=== PATIENT | male | born 1960 | race African-American/Black ===

== ENCOUNTER 2017-10-14 10:29 | Emergency (ER) | payer SELFPAY ==
--- NOTE | 2017-10-14 11:12 | ER Document Report ---
ED Medical Screen (RME) - General Chief Complaint: Psych Problem Stated Complaint: PSYCH EVAL Time Seen by Provider: 10/14/17 11:00 Notes: 57-year-old alcoholic. Presents for possible withdrawals. Patient states that he has not been feeling well. Very shaky. Denies any hallucinations at this time. States he wants to quit drinking. Denies suicidal ideation but states that he has been under a lot of stress and has been using alcohol as a way to escape. Requesting help at this time. I have greeted and performed a rapid initial assessment of this patient. A comprehensive ED assessment and evaluation of the patient, analysis of test results and completion of the medical decision making process will be conducted by additional ED providers. TRAVEL OUTSIDE OF THE [place] IN LAST 30 DAYS: No - Related Data Allergies/Adverse Reactions: No Known Allergies Allergy (Verified 10/14/17 10:30) Past Medical History - Social History Frequency of alcohol use: Heavy Drug Abuse: None - Past Medical History Cardiac Medical History: Reports: Hx Hypertension - no meds at this time Pulmonary Medical History: Reports: Hx Asthma Renal/ Medical History: Denies: Hx Peritoneal Dialysis - Immunizations Hx Diphtheria, Pertussis, Tetanus Vaccination: No Physical Exam - Vital signs Vitals: Temp Pulse Resp BP Pulse Ox 98.6 F 78 18 146/91 H 100 10/14/17 10:36 10/14/17 10:36 10/14/17 10:36 10/14/17 10:36 10/14/17 10:36 - Notes Notes: General: Alert no acute distress HEENT: Atraumatic, normocephalic, pupils equal round react to light and accommodation, extraocular muscles are intact, nose is non tender, posterior pharynx is without erythema or exudate. Tongue is unremarkable Heart: Heart with regular rate and rhythm, no murmurs, no rubs, no clicks Lungs: Lungs clear to auscultation bilaterally, no wheezes, rhonchi, rales Abdomen: Abdomen is soft, nontender, nondistended, normal bowel sounds Neuro: cranial nerves II through XII intact, reflexes intact, sensation intact, Extremities:Moving all extremities. Equal strength bilaterally in the upper lower extremities. No significant deformity Skin: No lesions. Skin intact Psych: Normal insight. Normal judgment Course - Vital Signs Vital signs: Temp Pulse Resp BP Pulse Ox 98.6 F 78 18 146/91 H 100 10/14/17 10:36 10/14/17 10:36 10/14/17 10:36 10/14/17 10:36 10/14/17 10:36 - Laboratory Result Diagrams: 10/14/17 11:30 10/14/17 11:30 Laboratory results interpreted by me: 10/14/17 10/14/17 11:30 11:30 Hgb 12.6 L MCV 79 L MCH 26.1 L RDW 17.2 H Plt Count 143 L Sodium 136.6 L
[2017-10-14] MEDS ORDERED: LORAZEPAM 1 MG TABLET PO ONE ×2 (11:14→19:47)
[2017-10-14 11:47] LABS: ABSOLUTE BASOPHILS # (AUTO) 0.1 10^3/uL (0.0-0.2); ABSOLUTE EOSINOPHILS # (AUTO) 0.1 10^3/uL (0.0-0.6); ABSOLUTE LYMPHOCYTES (AUTO) 2.5 10^3/uL (0.5-4.7); ABSOLUTE MONOCYTES (AUTO) 0.7 10^3/uL (0.1-1.4); ABSOLUTE NEUT (AUTO) 3.5 10^3/uL (1.7-8.2); BASOPHILS % (AUTO) 0.9 % (0-2); EOSINOPHILS % (AUTO) 1.8 % (0-6); HEMATOCRIT 38.3 % (37.9-51.0); HEMOGLOBIN 12.6 g/dL (13.5-17.0); LYMPHOCYTES % (AUTO) 36.7 % (13-45); MEAN CORPUSCULAR HEMOGLOBIN 26.1 pg (27.0-33.4); MEAN CORPUSCULAR HGB CONC 32.9 g/dL (32.0-36.0); MEAN CORPUSCULAR VOLUME 79 fl (80-97); MONOCYTES % (AUTO) 9.8 % (3-13); PLATELET COUNT 143 10^3/uL (150-450); RED BLOOD COUNT 4.83 10^6/uL (4.35-5.55); RED CELL DISTRIBUTION WIDTH 17.2 % (11.5-14.0); SEGMENTED NEUTROPHILS % (AUTO) 50.8 % (42-78); TOTAL CELLS COUNTED % (AUTO) 100 %; WHITE BLOOD COUNT 6.8 10^3/uL (4.0-10.5)
[2017-10-14 12:15] LABS: ALANINE AMINOTRANSFERASE 25 U/L (21-72); ALBUMIN 4.9 g/dL (3.5-5.0); ALCOHOL 52 mg/dL (NONE DETECTED); ALKALINE PHOSPHATASE 47 U/L (38-126); ANION GAP 13 (5-19); ASPARTATE AMINO TRANSFERASE 37 U/L (17-59); BILIRUBIN,DIRECT 0.2 mg/dL (0.0-0.4); BILIRUBIN,TOTAL 0.5 mg/dL (0.2-1.3); BLOOD UREA NITROGEN 8 mg/dL (7-20); CALCIUM 9.9 mg/dL (8.4-10.2); CARBON DIOXIDE 26 mmol/L (22-30); CHLORIDE 98 mmol/L (98-107); GLUCOSE 83 mg/dL (75-110); POTASSIUM 3.9 mmol/L (3.6-5.0); SODIUM 136.6 mmol/L (137-145); TOTAL PROTEIN 7.9 g/dL (6.3-8.2)
--- NOTE | 2017-10-14 12:31 | ER Document Report ---
ED Psych Disorder / Suicide - General Chief Complaint: Psych Problem Stated Complaint: PSYCH EVAL Time Seen by Provider: 10/14/17 11:00 Notes: Patient says he is experiencing panic attacks, anxiety attacks, nightmares. He thinks is from his alcohol drinking. Says he drinks beer as well as liquor every day. Drinks from the time he gets up in the morning until he runs out. If he stops drinking, he developed shakes. No other significant past history. Patient denies nausea, vomiting, or diarrhea. Denies any chest pains. Denies abdominal pains. No history of liver disease or pancreatitis. Occasionally short of breath because he smokes 2 packs of cigarettes daily. No urinary tract symptoms. Has not been running any fevers. Patient has never had any surgeries. Not on any regular prescription medications. TRAVEL OUTSIDE OF THE [place] IN LAST 30 DAYS: No - Related Data Allergies/Adverse Reactions: No Known Allergies Allergy (Verified 10/14/17 10:30) Past Medical History - Social History Smoking Status: Current Every Day Smoker - 2 packs per day Cigarette use (# per day): Yes Frequency of alcohol use: Heavy Drug Abuse: None Family History: Reviewed & Not Pertinent Patient has suicidal ideation: Yes - unsure Patient has homicidal ideation: No - Past Medical History Cardiac Medical History: Reports: Hx Hypertension - no meds at this time Pulmonary Medical History: Reports: Hx Asthma - Immunizations Hx Diphtheria, Pertussis, Tetanus Vaccination: No Review of Systems - Review of Systems Notes: REVIEW OF SYSTEMS: CONSTITUTIONAL : Denies fever. EENT: Denies eye, ear, nose or mouth or throat pain or other symptoms. CARDIOVASCULAR: Denies chest pain. RESPIRATORY: Patient has some cough and occasional shortness of breath which he attributes to his smoking 2 packs of cigarettes daily. GASTROINTESTINAL: Denies abdominal pain or nausea, vomiting, or diarrhea. GENITOURINARY: Denies difficulty or painful urinating, urinary frequency, blood in urine. MUSCULOSKELETAL: Denies back or neck pain. Denies joint pain or swelling. SKIN: Denies rash or skin lesions. NEUROLOGICAL: Denies LOC or altered mental status. Denies headache. Denies sensory loss or motor deficits. ALL OTHER SYSTEMS REVIEWED AND NEGATIVE. Physical Exam - Vital signs Vitals: Temp Pulse Resp BP Pulse Ox 98.6 F 78 18 146/91 H 100 10/14/17 10:36 10/14/17 10:36 10/14/17 10:36 10/14/17 10:36 10/14/17 10:36 Interpretation: Normal - Notes Notes: PHYSICAL EXAMINATION: GENERAL: Well-appearing, in no acute distress. Vital signs all essentially normal. Minimal elevation of blood pressure. HEAD: Atraumatic, normocephalic. EYES: Pupils equal round and reactive to light, extraocular movements intact. ENT: oropharynx clear without exudates. Moist mucous membranes. NECK: Normal range of motion, supple. LUNGS: Breath sounds clear and equal bilaterally. An occasional scattered wheezes heard. HEART: Regular rate and rhythm without murmurs. ABDOMEN: Soft, nontender. No guarding or rebound. No masses. BACK: No tenderness throughout entire back. EXTREMITIES: Normal range of motion without pain. NEUROLOGICAL: Normal speech, normal gait. Normal sensory, motor, and reflex exams. Awake, alert, and oriented x3. Cranial nerves normal. PSYCH: Normal mood, normal affect. SKIN: Warm, dry, no rashes. Course - Re-evaluation Re-evalutation: 10/14/17 18:57 Lab work all essentially normal except for the patient's blood alcohol of 52. - Vital Signs Vital signs: Temp Pulse Resp BP Pulse Ox 99.2 F 73 18 133/78 H 100 10/14/17 18:44 10/14/17 18:44 10/14/17 14:50 10/14/17 18:44 10/14/17 18:44 - Laboratory Result Diagrams: 10/14/17 11:30 10/14/17 11:30 Laboratory results interpreted by me: 10/14/17 10/14/17 10/14/17 11:30 11:30 14:09 Hgb 12.6 L MCV 79 L MCH 26.1 L RDW 17.2 H Plt Count 143 L Sodium 136.6 L Urine Urobilinogen 4.0 H - EKG Interpretation by Pr EKG shows normal: Sinus rhythm Rate: Normal Rhythm: NSR - At 69 Voltage: Consistant with LVH Additional EKG results interpreted by mo: 10/14/17 12:[address] changes, no acute process noted. Discharge - Discharge Clinical Impression: Alcohol abuse
--- NOTE | 2017-10-14 13:10 | EKG REPORT ---
SEVERITY:- ABNORMAL ECG - SINUS TACHYCARDIA WITH PAC. BORDERLINE LEFT AXIS DEVIATION NONSPECIFIC T ABNORMALITIES, ANTERIOR LEADS : Confirmed by: Nam Petty MD 14-Oct-2017 13:09:59
[2017-10-14 14:57] LABS: APPEARANCE,URINE CLEAR; BILIRUBIN,URINE NEGATIVE (NEGATIVE); COLOR,URINE STRAW; GLUCOSE, URINE NEGATIVE (NEGATIVE); KETONES,URINE NEGATIVE (NEGATIVE); PROTEIN,URINE NEGATIVE (NEGATIVE); URINE SPECIFIC GRAVITY 1.007
[2017-10-14 14:58] LABS: LEUKOCYTE ESTERASE,URINE NEGATIVE (NEGATIVE); NITRITE,URINE NEGATIVE (NEGATIVE)
[2017-10-14 14:59] LABS: URINE AMPHETAMINES SCREEN NEGATIVE; URINE BARBITURATES SCREEN NEGATIVE; URINE BENZODIAZEPINES SCREEN NEGATIVE; URINE COCAINE SCREEN NEGATIVE; URINE MARIJUANA (THC) SCREEN NEGATIVE; URINE METHADONE SCREEN NEGATIVE; URINE PHENCYCLIDINE SCREEN NEGATIVE
[2017-10-14] MEDS ORDERED: HYDROXYZINE PAMOATE 25 MG CAPSULE PO ONE (19:47)
[2017-10-15 08:12] VITALS: BP 145/80
--- NOTE | 2017-10-19 07:23 | PSYCHOLOGICAL NOTE ---
Psych Note - Psych Note Psych Note: Reason for Consult: alcohol abuse Consult Requested: 1229 Evaluation: 1st attempt 1300 (patient is under the influence and was provided Ativan; patient is currently sleeping 2nd attempt 1600 Patient says he is experiencing panic attacks, anxiety attacks, nightmares. He thinks is from his alcohol drinking. Says he drinks beer as well as liquor every day. Drinks from the time he gets up in the morning until he runs out. If he stops drinking, he developed shakes. Patient's brother at bedside at patient's request. Patient disclosed that he is here at [facility] ED to detox. Patient disclosed he has difficulty with drinking and is interested in achieving sobriety. Patient disclosed attempting to achieve sobriety on his own however denies any inpatient substance abuse treatment or outpatient provider. He denied history of mental health denies any previous inpatient mental health treatment or seeing an outpatient mental health provider. Patient's brother disclosed concern that the patient drinks constantly; "all his money goes to liquor." He disclosed that he is willing to assist the patient; however, feels that there is not a whole lot he can do for him unless the patient truly wants help. He agrees to be part of the patient's discharge plan to assist the patient in sobriety. Clinician discussed inpatient substance abuse treatment options to include integrated family services to help coordinate. Patient is alert and orientated to person, place, time and circumstance. Mood is euthymic with congruent affect as evidenced by smiling and openly engaging with clinician. Patient denies suicidal and homicidal ideation. Delusions are absent and behaviors congruent with intact reality based presentation i.e. organized and linear thought processes. Intellectual abilities appear to be within the average range. Eye contact was well-maintained. Conversational speech was within normal rate, tone and prosody. Attention and concentration were good. Insight, judgment, impulse control are historically poor per patient due to substance abuse. No medication recommendations at this time. 303.90 (F10.20) Alcohol abuse; severe Impression\\plan: Patient is considered psychiatrically clear. Patient is interested in sobriety and requests information. Clinician provided local resource list to include integrated family services to help patient coordinate obtaining inpatient substance abuse treatment. Patient's brother agrees to be part of patient's discharge plan to assist patient in following through with substance abuse treatment if he chooses. Dr. Torres was consulted and the care and management of this patient; attending physician is in agreement with recommendations and disposition.
== END 2017-10-15 08:12 | disposition home or self-care (01) ==
LOC: ER 10:29
DX: F10.10 Alcohol abuse, uncomplicated (principal); F41.9 Anxiety disorder, unspecified; F41.0 Panic disorder [episodic paroxysmal anxiety]; F51.5 Nightmare disorder; F17.210 Nicotine dependence, cigarettes, uncomplicated; I10 Essential (primary) hypertension; J45.909 Unspecified asthma, uncomplicated; R05 Cough; R06.02 Shortness of breath
CPT/HCPCS: 36415; 80053; 80307; 81001; 85025; 93005; 93010; 99284

== ENCOUNTER 2019-06-12 16:09 | Inpatient (IN) | payer SELFPAY ==
--- NOTE | 2019-06-12 16:42 | RADIOLOGY REPORT (SQ) ---
EXAM DESCRIPTION: CHEST SINGLE VIEW COMPLETED DATE/TIME: 06/12/2019 4:31 pm REASON FOR STUDY: bed 5 db COMPARISON: None. EXAM PARAMETERS: NUMBER OF VIEWS: One view. TECHNIQUE: Single frontal radiographic view of the chest acquired. RADIATION DOSE: NA LIMITATIONS: None. FINDINGS: LUNGS AND PLEURA: Dense infiltrate in the mid right lung. Left lung clear. No pleural ef fusion. No pneumothorax. MEDIASTINUM AND HILAR STRUCTURES: No masses. Contour normal. HEART AND VASCULAR STRUCTURES: Heart normal in size. Normal vasculature. BONES: No acute findings. HARDWARE: None in the chest. OTHER: No other significant finding. IMPRESSION: DENSE INFILTRATE IN THE RIGHT LUNG CONSISTENT WITH PNEUMONIA. TECHNICAL DOCUMENTATION: JOB ID: [id number] [employer]- All Rights Reserved Reading location - IP/workstation name: [email or web address]
[2019-06-12 16:54] LABS: VENOUS BLOOD BASE EXCESS -1.4 mmol/L; VENOUS BLOOD HCO3 21.8 mmol/L (20-32); VENOUS BLOOD PCO2 32.4 mmHg (35-63); VENOUS BLOOD PH 7.45 (7.30-7.42)
[2019-06-12 16:58] LABS: HEMATOCRIT 36.9 % (37.9-51.0); HEMOGLOBIN 12.1 g/dL (13.5-17.0); MEAN CORPUSCULAR HEMOGLOBIN 26.1 pg (27.0-33.4); MEAN CORPUSCULAR HGB CONC 32.7 g/dL (32.0-36.0); MEAN CORPUSCULAR VOLUME 80 fl (80-97); RED BLOOD COUNT 4.62 10^6/uL (4.35-5.55); RED CELL DISTRIBUTION WIDTH 18.8 % (11.5-14.0)
[2019-06-12 17:11] LABS: ALBUMIN 4.1 g/dL (3.5-5.0); ALKALINE PHOSPHATASE 38 U/L (38-126); ASPARTATE AMINO TRANSFERASE 111 U/L (17-59); BILIRUBIN,DIRECT 1.4 mg/dL (0.0-0.4); BILIRUBIN,TOTAL 2.6 mg/dL (0.2-1.3); BLOOD UREA NITROGEN 27 mg/dL (7-20); CALCIUM 9.2 mg/dL (8.4-10.2); CREATINE KINASE 256 U/L (55-170); GLUCOSE 120 mg/dL (75-110); TOTAL PROTEIN 7.1 g/dL (6.3-8.2)
[2019-06-12 17:22] LABS: CREATINE KINASE MB 3.16 ng/mL (<4.55)
[2019-06-12 17:24] LABS: TROPONIN I < 0.012 ng/mL
[2019-06-12 17:29] LABS: PLATELET COUNT 67 10^3/uL (150-450)
[2019-06-12 17:32] LABS: CARBON DIOXIDE 21 mmol/L (22-30); CHLORIDE 96 mmol/L (98-107)
[2019-06-12 17:35] LABS: POTASSIUM 2.7 mmol/L (3.6-5.0)
[2019-06-12 17:37] LABS: ABSOLUTE LYMPHOCYTES# (MANUAL) 0.5 10^3/uL (0.5-4.7); ABSOLUTE MONOCYTES # (MANUAL) 0.2 10^3/uL (0.1-1.4); ANISOCYTOSIS 2+; BASOPHILS % (MANUAL) 0 % (0-2); EOSINOPHILS % (MANUAL) 0 % (0-6); LYMPHOCYTES % (MANUAL) 13 % (13-45); METAMYELOCYTES % (MANUAL) 1 % (0-1); MONOCYTES % (MANUAL) 4 % (3-13); SEGMENTED NEUTROPHILS % (MAN) 66 % (42-78); TOTAL CELLS COUNTED 100
[2019-06-12 17:38] LABS: PLATELET COMMENT DECREASED; PLATELET LARGE PRESENT; TARGET CELLS 1+; TOXIC GRANULATION 2+; TOXIC VACUOLATION PRESENT
[2019-06-12] MEDS ORDERED: RINGERS SOLUTION,LACTATED 1,000 ML IV ONE ×2 (17:38→18:09)
[2019-06-12 17:39] LABS: BAND NEUTROPHILS % (MANUAL) 16 % (3-5)
[2019-06-12] MEDS ORDERED: IPRATROPIUM/ALBUTEROL 0.5-2.5 MG/3 ML AMPUL NEB ONE (17:39)
[2019-06-12] MEDS ORDERED: METHYLPREDNISOLONE INJ 125 MG/2 ML SDV IV ONE (17:39)
[2019-06-12] MEDS ORDERED: AZITHROMYCIN 250 MG TABLET PO ONE (17:40)
[2019-06-12] MEDS ORDERED: CEFTRIAXONE 1 GM/D5W RTU 1 GM/50 ML RTUPB IV ONE (17:40)
[2019-06-12 17:41] LABS: ANION GAP 20 (5-19)
[2019-06-12] MEDS ORDERED: POTASSI CL 20 MEQ/50 ML RIDER 20 MEQ/50 ML RTUPB IV ONE ×2 (17:42→21:00)
[2019-06-12] MEDS ORDERED: POTASSIUM CHLORIDE 10 MEQ TABLET.ER PO ONE (17:42)
[2019-06-12 18:04] LABS: APPEARANCE,URINE CLOUDY; BILIRUBIN,URINE NEGATIVE (NEGATIVE); COLOR,URINE AMBER; GLUCOSE, URINE 50 mg/dL (NEGATIVE); KETONES,URINE NEGATIVE (NEGATIVE); LEUKOCYTE ESTERASE,URINE NEGATIVE (NEGATIVE); NITRITE,URINE NEGATIVE (NEGATIVE); PROTEIN,URINE >=500 mg/dL (NEGATIVE); URINE SPECIFIC GRAVITY 1.013
--- NOTE | 2019-06-12 18:16 | ER Document Report ---
ED General - General Chief Complaint: Shortness Of Breath Stated Complaint: SHORTNESS OF BREATH Time Seen by Provider: 06/12/19 17:23 Mode of Arrival: Ambulatory Information source: Patient, PENDING SALE TO [facility] Records Notes: 58-year-old male with hypertension complaint of shortness of breath, productive cough that have been ongoing for 1 week. Patient states that he does not take any blood pressure medication or any medication. Patient reports that his grandson called EMS and that he is not really sure why. Patient denies palpitations, chest pain, back pain he does admit to generalized abdominal pain with coughing only. Patient denies any leg swelling, history of PE, DVT. Patient does admit to smoking almost 1 pack/day for over 20 years. TRAVEL OUTSIDE OF THE [place] IN LAST 30 DAYS: No - HPI Onset: Last week Onset/Duration: Gradual, Intermittent Quality of pain: Achy Severity: Mild Associated symptoms: Productive cough, Headache, Shortness of breath. denies: Body/muscle aches, Chest pain, Fever, Leg swelling, Nausea, Vomiting, Weakness Exacerbated by: Walking, Coughing Relieved by: Denies Similar symptoms previously: No Recently seen / treated by doctor: No - Related Data Allergies/Adverse Reactions: No Known Allergies Allergy (Verified 10/14/17 10:30) Past Medical History - General Information source: Patient - Social History Smoking Status: Current Every Day Smoker Cigarette use (# per day): Yes - 10 Smoking Education Provided: Yes - Smoking cessation counseling was provided for 4 minutes at the bedside Frequency of alcohol use: Occasional Drug Abuse: None Lives with: Family Family History: Reviewed & Not Pertinent Patient has suicidal ideation: No Patient has homicidal ideation: No - Past Medical History Cardiac Medical History: Reports: Hx Hypertension - no meds at this time Pulmonary Medical History: Reports: Hx Asthma Renal/ Medical History: Denies: Hx Peritoneal Dialysis - Immunizations Hx Diphtheria, Pertussis, Tetanus Vaccination: No Review of Systems - Review of Systems Notes: REVIEW OF SYSTEMS: CONSTITUTIONAL : Denies fever, chills, or sweats. Denies recent illness. Denies weight loss, recent hospitalizations. EENT: Denies visual changes, eye pain. Denies sore throat, oral lesions, difficulty swallowing. CARDIOVASCULAR: Denies chest pain. Denies palpitations. Denies lower extremity edema. RESPIRATORY: + cough. + shortness of breath, wheezing. GASTROINTESTINAL: Denies abdominal distention. Denies nausea, vomiting, or diarrhea. Denies blood in vomitus, stools, or per rectum. Denies black, tarry stools. Denies constipation. GENITOURINARY: Denies difficulty urinating, painful urination, frequency, blood in urine, testicular pain or penile discharge. MUSCULOSKELETAL: Denies back or neck pain or stiffness. Denies joint pain or swelling. SKIN: Denies rash, lesions or sores. HEMATOLOGIC : Denies easy bruising or bleeding. LYMPHATIC: Denies swollen glands. NEUROLOGICAL: Denies confusion or altered mental status. Denies loss of consciousness. Denies dizziness or lightheadedness. Denies headache. Denies w eakness or paralysis. Denies problems difficulty with ambulation, slurred speech. Denies sensory loss, numbness, or tingling. Denies seizures. PSYCHIATRIC: Denies anxiety or stress. Denies depression, suicidal ideation, or Physical Exam - Vital signs Vitals: Resp Pulse Ox 40 H 96 06/12/19 16:14 06/12/19 16:14 - Notes Notes: PHYSICAL EXAMINATION: GENERAL: Well-appearing, well-nourished and in no acute distress. HEAD: Atraumatic, normocephalic. EYES: Pupils equal round and reactive to light, extraocular movements intact, sclera anicteric, conjunctiva are normal. ENT: Nares patent, oropharynx clear without exudates. Moist mucous membranes. NECK: Normal range of motion, supple without lymphadenopathy LUNGS: Tachypneic, accessory muscle use, increased work of breathing, coarse breath sounds right upper lung field. Patient on 3 L nasal cannula HEART: Tachycardic, regular rhythm without murmurs ABDOMEN: Soft, nontender, nondistended abdomen. No guarding, no rebound. No masses appreciated. Musculoskeletal: Normal range of motion, no pitting or edema. No cyanosis. NEUROLOGICAL: Cranial nerves grossly intact. Normal speech, normal gait. Normal sensory, motor exams PSYCH: Normal mood, normal affect. SKIN: Warm, Dry, normal turgor, no rashes or lesions noted. Course - Re-evaluation Re-evalutation: 06/12/19 18:14 Laboratory 06/12/19 06/12/19 06/12/19 16:27 16:34 16:36 WBC 4.0 RBC 4.62 Hgb 12.1 L Hct 36.9 L MCV 80 MCH 26.1 L MCHC 32.7 RDW 18.8 H Plt Count 67 L Lymph % (Auto) Not Reportable Summers % (Auto) Not Reportable Eos % (Auto) Not Reportable Baso % (Auto) Not Reportable Absolute Neuts (auto) Not Reportable Absolute Lymphs (auto) Not Reportable Absolute Monos (auto) Not Reportable Absolute Eos (auto) Not Reportable Absolute Basos (auto) Not Reportable Total Counted 100 Seg Neutrophils % Not Reportable Seg Neuts % (Manual) 66 Band Neutrophils % 16 H Lymphocytes % (Manual) 13 Monocytes % (Manual) 4 Eosinophils % (Manual) 0 Basophils % (Manual) 0 Metamyelocytes % 1 Abs Neuts (Manual) 3.3 Abs Lymphs (Manual) 0.5 Abs Monocytes (Manual) 0.2 Absolute Eos (Manual) 0.0 Abs Basophils (Manual) 0.0 Toxic Granulation 2+ Toxic Vacuolation PRESENT Large Platelets PRESENT Platelet Comment DECREASED Anisocytosis 2+ Target Cells 1+ D-Dimer 3.95 H VBG pH VBG pCO2 VBG HCO3 VBG Base Excess Sodium Potassium Chloride Carbon Dioxide Anion Gap BUN Creatinine Est GFR ( Amer) Est GFR (MDRD) Non-Af Glucose POC Glucose 131 H Calcium Total Bilirubin Direct Bilirubin Neonat Total Bilirubin Neonat Direct Bilirubin Neonat Indirect Bili AST ALT Alkaline Phosphatase Creatine Kinase CK-MB (CK-2) Troponin I Total Protein Albumin Urine Color Urine Appearance Urine pH Ur Specific Alpine Urine Protein Urine Glucose (UA) Urine Ketones Urine Blood Urine Nitrite Urine Bilirubin Urine Urobilinogen Ur Leukocyte Esterase Urine WBC (Auto) Urine RBC (Auto) U Hyaline Cast (Auto) Urine Bacteria (Auto) Urine WBC Clumps Squamous Epi Cells Auto U Non-Squamous Epis Auto Urine Mucus (Auto) Urine Ascorbic Acid 06/12/19 06/12/19 06/12/19 16:36 16:36 16:36 WBC RBC Hgb Hct MCV MCH MCHC RDW Plt Count Lymph % (Auto) Summers % (Auto) Eos % (Auto) Baso % (Auto) Absolute Neuts (auto) Absolute Lymphs (auto) Absolute Monos (auto) Absolute Eos (auto) Absolute Basos (auto) Total Counted Seg Neutrophils % Seg Neuts % (Manual) Band Neutrophils % Lymphocytes % (Manual) Monocytes % (Manual) Eosinophils % (Manual) Basophils % (Manual) Metamyelocytes % Abs Neuts (Manual) Abs Lymphs (Manual) Abs Monocytes (Manual) Absolute Eos (Manual) Abs Basophils (Manual) Toxic Granulation Toxic Vacuolation Large Platelets Platelet Comment Anisocytosis Target Cells D-Dimer VBG pH 7.45 H VBG pCO2 32.4 L VBG HCO3 21.8 VBG Base Excess -1.4 Sodium 137.3 Potassium 2.7 L* Chloride 96 L Carbon Dioxide 21 L Anion Gap 20 H BUN 27 H Creatinine 1.99 H Est GFR ( Amer) 42 L Est GFR (MDRD) Non-Af 35 L Glucose 120 H POC Glucose Calcium 9.2 Total Bilirubin 2.6 H Direct Bilirubin 1.4 H Neonat Total Bilirubin Not Reportable Neonat Direct Bilirubin Not Reportable Neonat Indirect Bili Not Reportable AST 111 H ALT 66 Alkaline Phosphatase 38 Creatine Kinase 256 H CK-MB (CK-2) 3.16 Troponin I < 0.012 Total Protein 7.1 Albumin 4.1 Urine Color Urine Appearance Urine pH Ur Specific Alpine Urine Protein Urine Glucose (UA) Urine Ketones Urine Blood Urine Nitrite Urine Bilirubin Urine Urobilinogen Ur Leukocyte Esterase Urine WBC (Auto) Urine RBC (Auto) U Hyaline Cast (Auto) Urine Bacteria (Auto) Urine WBC Clumps Squamous Epi Cells Auto U Non-Squamous Epis Auto Urine Mucus (Auto) Urine Ascorbic Acid 06/12/19 16:36 WBC RBC Hgb Hct MCV MCH MCHC RDW Plt Count Lymph % (Auto) Summers % (Auto) Eos % (Auto) Baso % (Auto) Absolute Neuts (auto) Absolute Lymphs (auto) Absolute Monos (auto) Absolute Eos (auto) Absolute Basos (auto) Total Counted Seg Neutrophils % Seg Neuts % (Manual) Band Neutrophils % Lymphocytes % (Manual) Monocytes % (Manual) Eosinophils % (Manual) Basophils % (Manual) Metamyelocytes % Abs Neuts (Manual) Abs Lymphs (Manual) Abs Monocytes (Manual) Absolute Eos (Manual) Abs Basophils (Manual) Toxic Granulation Toxic Vacuolation Large Platelets Platelet Comment Anisocytosis Target Cells D-Dimer VBG pH VBG pCO2 VBG HCO3 VBG Base Excess Sodium Potassium Chloride Carbon Dioxide Anion Gap BUN Creatinine Est GFR ( Amer) Est GFR (MDRD) Non-Af Glucose POC Glucose Calcium Total Bilirubin Direct Bilirubin Neonat Total Bilirubin Neonat Direct Bilirubin Neonat Indirect Bili AST ALT Alkaline Phosphatase Creatine Kinase CK-MB (CK-2) Troponin I Total Protein Albumin Urine Color SENDY Urine Appearance CLOUDY Urine pH 6.0 Ur Specific Alpine 1.013 Urine Protein >=500 H Urine Glucose (UA) 50 H Urine Ketones NEGATIVE Urine Blood MODERATE H Urine Nitrite NEGATIVE Urine Bilirubin NEGATIVE Urine Urobilinogen 4.0 H Ur Leukocyte Esterase NEGATIVE Urine WBC (Auto) 14 Urine RBC (Auto) 4 U Hyaline Cast (Auto) 75 Urine Bacteria (Auto) TRACE Urine WBC Clumps FEW Squamous Epi Cells Auto 2 U Non-Squamous Epis Auto 1 Urine Mucus (Auto) MANY Urine Ascorbic Acid NEGATIVE Chest X-Ray 06/12/19 16:12 IMPRESSION: DENSE INFILTRATE IN THE RIGHT LUNG CONSISTENT WITH PNEUMONIA. Temp Pulse Resp BP Pulse Ox 98.3 F 29 H 133/89 H 99 06/12/19 16:43 06/12/19 16:15 06/12/19 16:15 06/12/19 16:15 58-year-old male presents with complaint of shortness of breath and productive cough. Vital signs reviewed and patient is tachypneic, initially hypoxic but afebrile. Upon exam patient displays accessory muscle use, increased work of breathing and has coarse breath sounds in the right upper lung field and scattered wheezing. Chest x-ray shows a dense infiltrate in the right lung consistent with pneumonia. Azithromycin and ceftriaxone were administered for this. 06/12/19 20:48 Patient's d-dimer is elevated but with age adjustment is unlikely to have PE. Patient has been accepted by the hospitalist for hyponatremia, pneumonia and acute kidney injury. - Vital Signs Vital signs: Temp Pulse Resp BP Pulse Ox 98.3 F 29 H 133/89 H 99 06/12/19 16:43 06/12/19 16:15 06/12/19 16:15 06/12/19 16:15 - Laboratory Result Diagrams: 06/12/19 16:36 06/12/19 16:36 Laboratory results interpreted by me: 06/12/19 06/12/19 06/12/19 16:27 16:34 16:36 Hgb 12.1 L Hct 36.9 L MCH 26.1 L RDW 18.8 H Plt Count 67 L Band Neutrophils % 16 H D-Dimer 3.95 H VBG pH VBG pCO2 Potassium Chloride Carbon Dioxide Anion Gap BUN Creatinine Est GFR ( Amer) Est GFR (MDRD) Non-Af Glucose POC Glucose 131 H Total Bilirubin Direct Bilirubin AST Creatine Kinase Urine Protein Urine Glucose (UA) Urine Blood Urine Urobilinogen 06/12/19 06/12/19 06/12/19 16:36 16:36 16:36 Hgb Hct MCH RDW Plt Count Band Neutrophils % D-Dimer VBG pH 7.45 H VBG pCO2 32.4 L Potassium 2.7 L* Chloride 96 L Carbon Dioxide 21 L Anion Gap 20 H BUN 27 H Creatinine 1.99 H Est GFR ( Amer) 42 L Est GFR (MDRD) Non-Af 35 L Glucose 120 H POC Glucose Total Bilirubin 2.6 H Direct Bilirubin 1.4 H AST 111 H Creatine Kinase 256 H Urine Protein >=500 H Urine Glucose (UA) 50 H Urine Blood MODERATE H Urine Urobilinogen 4.0 H - Diagnostic Test Radiology reviewed: Image reviewed, Reports reviewed - EKG Interpretation by Me EKG shows normal: Sinus rhythm Rate: Tachycardia Rhythm: NSR When compared to previous EKG there are: No significant change Discharge - Discharge Clinical Impression: Tachypnea, Respiratory distress, Acute kidney injury, Hypokalemia Pneumonia Qualifiers: Pneumonia type: due to unspecified organism Laterality: right Lung location: middle lobe of lung Qualified Code(s): J18.9 - Pneumonia, unspecified organism Condition: Good Disposition: ADMITTED INPATIENT Admitting Provider: Heidi (Hospitalist) Unit Admitted: Telemetry
[2019-06-12] MEDS ORDERED: ALBUTEROL SULFATE 0.083% NEB 2.5 MG/3 ML AMPUL NEB PRN (18:23)
[2019-06-12] MEDS ORDERED: GUAIFENESIN SYRP 200 MG/10 ML UDC PO PRN (18:23)
[2019-06-12] MEDS ORDERED: ACETAMINOPHEN 325 MG TABLET PO PRN (18:23)
[2019-06-12] MEDS: IPRATROPIUM/ALBUTEROL 0.5-2.5 MG/3 ML AMPUL NEB SCH (19:44)
[2019-06-12] MEDS ORDERED: LEVALBUTEROL HCL NEB 1.25 MG/3 ML AMPUL NEB PRN (20:10)
--- NOTE | 2019-06-12 21:01 | PDOC H&P ---
History of Present Illness Admission Date/PCP: 06/12/19 18:28 Patient complains of: Shortness of breath, cough History of Present Illness: CAMRON DANGELO is a 58 year old male with a past medical history significant for hypertension, asthma, tobacco dependency, alcohol dependency who presents to the emergency department today with a complaint of 2 to 3 days of rapidly worsening shortness of breath and productive cough. He reports generalized malaise and fatigue. Evaluation in the emergency department reveals tachycardia, tachypnea, hypoxia on room air, normal WBCs spoke with bandemia, elevated d-dimer to 3.95, hypokalemia (2.7) anion gap acidosis, NAVJOT (1.99/27), elevated LFTs, negative urinalysis, and a chest x-ray that reveals a dense right mid field consolidation. VQ scan is pending. The patient is provided 2 L of normal saline, azithromycin and Rocephin, potassium replacement, and referred to the hospitalist service for admission and management of the above-stated complaints of findings. Past Medical History Cardiac Medical History: Reports: Hypertension Pulmonary Medical History: Reports: Asthma Neurological Medical History: Reports: None Endocrine Medical History: Reports: None Renal/ Medical History: Reports: None GI Medical History: Reports: None Musculoskeltal Medical History: Reports: None Psychiatric Medical History: Reports: Tobacco Dependency Traumatic Medical History: Reports: None Hematology: Reports: None Infectious Medical History: Reports: None Past Surgical History Past Surgical History: Reports: None Social History Information Source: Patient Lives with: Family Smoking Status: Current Every Day Smoker Cigarettes Packs Per Day: 1 Electronic Cigarette use?: Yes Frequency of Alcohol Use: Occasional Amount of Alcoholic Beverages Per Day: 1 beer Last Alcohol Use: 06/10/19 Hx Recreational Drug Use: No - Advance Directive Resuscitation Status: Full Code Family History Family History: Reviewed & Not Pertinent Parental Family History Reviewed: Yes Children Family History Reviewed: Yes Sibling(s) Family History Reviewed.: Yes Medication/Allergy Home Medications: No Home Medications 10/14/17 Allergies/Adverse Reactions: No Known Allergies Allergy (Verified 10/14/17 10:30) Review of Systems Constitutional: PRESENT: fatigue, weakness. ABSENT: chills, fever(s), head ache(s), weight gain, weight loss Eyes: ABSENT: visual disturbances Ears: ABSENT: hearing changes Cardiovascular: PRESENT: dyspnea on exertion, palpitations. ABSENT: chest pain, edema, orthropnea Respiratory: PRESENT: cough, dyspnea, sputum. ABSENT: hemoptysis Gastrointestinal: ABSENT: abdominal pain, constipation, diarrhea, hematemesis, hematochezia, nausea, vomiting Genitourinary: ABSENT: dysuria, hematuria Musculoskeletal: ABSENT: joint swelling Integumentary: ABSENT: rash, wounds Neurological: ABSENT: abnormal gait, abnormal speech, confusion, dizziness, focal weakness, syncope Psychiatric: ABSENT: anxiety, depression, homidical ideation, suicidal ideation Endocrine: ABSENT: cold intolerance, heat intolerance, polydipsia, polyuria Hematologic/Lymphatic: ABSENT: easy bleeding, easy bruising Physical Exam Vital Signs: Temp Pulse Resp BP Pulse Ox 98.3 F 29 H 133/89 H 99 06/12/19 16:43 06/12/19 16:15 06/12/19 16:15 06/12/19 16:15 Intake & Output 06/11/19 06/12/19 06/13/19 06:59 06:59 06:59 Intake Total 1332 Balance 1332 Weight 61 kg General appearance: PRESENT: cooperative, disheveled, mild distress, thin, well- developed, well-nourished Head exam: PRESENT: atraumatic, normocephalic Eye exam: PRESENT: conjunctiva pink, EOMI, PERRLA. ABSENT: scleral icterus Mouth exam: PRESENT: dry mucosa, tongue midline Teeth exam: PRESENT: poor dentation Neck exam: ABSENT: carotid bruit, JVD, lymphadenopathy, thyromegaly Respiratory exam: PRESENT: accessory muscle use, rhonchi - throughout, symmetri [place], tachypnea. ABSENT: rales, wheezes Cardiovascular exam: PRESENT: RRR, +S1, +S2, tachycardia. ABSENT: diastolic murmur, rubs, systolic murmur Pulses: PRESENT: normal dorsalis pedis pul Vascular exam: PRESENT: normal capillary refill GI/Abdominal exam: PRESENT: normal bowel sounds, soft. ABSENT: distended, guarding, mass, organolmegaly, rebound, tenderness Rectal exam: PRESENT: deferred Extremities exam: PRESENT: full ROM. ABSENT: calf tenderness, clubbing, pedal edema Musculoskeletal exam: PRESENT: ambulatory Neurological exam: PRESENT: alert, awake, oriented to person, oriented to place, oriented to time, oriented to situation, CN II-XII grossly intact. ABSENT: motor sensory deficit Psychiatric exam: PRESENT: appropriate affect, normal mood. ABSENT: homicidal ideation, suicidal ideation Skin exam: PRESENT: dry, intact, warm. ABSENT: cyanosis, rash Results Laboratory Results: 06/12/19 16:36 06/12/19 16:36 06/12/19 06/12/19 06/12/19 16:36 16:36 16:36 WBC 4.0 RBC 4.62 Hgb 12.1 L Hct 36.9 L MCV 80 MCH 26.1 L MCHC 32.7 RDW 18.8 H Plt Count 67 L Seg Neutrophils % Not Reportable VBG pH 7.45 H VBG pCO2 32.4 L VBG HCO3 21.8 VBG Base Excess -1.4 Sodium 137.3 Potassium 2.7 L* Chloride 96 L Carbon Dioxide 21 L Anion Gap 20 H BUN 27 H Creatinine 1.99 H Est GFR ( Amer) 42 L Glucose 120 H Calcium 9.2 Total Bilirubin 2.6 H AST 111 H Alkaline Phosphatase 38 Total Protein 7.1 Albumin 4.1 Urine Color Urine Appearance Urine pH Ur Specific [place] Urine Protein Urine Glucose (UA) Urine Ketones Urine Blood Urine Nitrite Ur Leukocyte Esterase Urine WBC (Auto) Urine RBC (Auto) 06/12/19 16:36 WBC RBC Hgb Hct MCV MCH MCHC RDW Plt Count Seg Neutrophils % VBG pH VBG pCO2 VBG HCO3 VBG Base Excess Sodium Potassium Chloride Carbon Dioxide Anion Gap BUN Creatinine Est GFR ( Amer) Glucose Calcium Total Bilirubin AST Alkaline Phosphatase Total Protein Albumin Urine Color SENDY Urine Appearance CLOUDY Urine pH 6.0 Ur Specific [place] 1.013 Urine Protein >=500 H Urine Glucose (UA) 50 H Urine Ketones NEGATIVE Urine Blood MODERATE H Urine Nitrite NEGATIVE Ur Leukocyte Esterase NEGATIVE Urine WBC (Auto) 14 Urine RBC (Auto) 4 06/12/19 06/12/19 16:36 16:36 Creatine Kinase 256 H CK-MB (CK-2) 3.16 Troponin I < 0.012 Impressions: Chest X-Ray 06/12/19 16:12 IMPRESSION: DENSE INFILTRATE IN THE RIGHT LUNG CONSISTENT WITH PNEUMONIA. Assessment and Plan - Diagnosis (1) Pneumonia Qualifiers: Pneumonia type: due to unspecified organism Laterality: right Lung location: middle lobe of lung Qualified Code(s): J18.9 - Pneumonia, unspecified organism Is this a current diagnosis for this admission?: Yes Plan: Patient presented to the emergency department today with a complaint of 2 to 3 days of rapidly worsening dyspnea on exertion, productive cough. Chest x-ray demonstrates a dense infiltrate to the right med-lung. WBCs 4.0, though with bandemia. Patient is currently afebrile. Blood cultures are pending. Sputum cultures pending. The patient is admitted to the medical floor and continuous cardiac telemetry. We will provide supplemental oxygen as needed maintain saturations greater than 89%. He is empirically placed on IV azithromycin and Rocephin for treatment of community-acquired pneumonia. We will provide schedule and as needed nebulizer treatments. Mucomyst nebulizer twice daily Mucinex twice daily. Incentive spirometer to bedside. (2) Sepsis Qualifiers: Sepsis type: sepsis due to unspecified organism Severe sepsis acute organ dysfunction type: acute renal failure Severe sepsis shock status: without septic shock Is this a current diagnosis for this admission?: Yes Plan: Sepsis due to community-acquired pneumonia, present on arrival to the ED, evidenced by Platelets 67, acute kidney injury, liver dysfunction, tachycardia, tachypnea, bandemia, elevated d-dimer, and pneumonia on chest x-ray in a patient who appears acutely ill. The patient received a 2 L normal saline bolus by the ED provider (30 mL's per kilogram). We will continue generous IV fluids. Cultures and antibiotics as above. Lactic acid is pending. (3) Elevated LFTs Is this a current diagnosis for this admission?: Yes Plan: Likely secondary to sepsis, dehydration in patient with chronic alcohol use Hepatitis profile pending. Continue gentle IV fluids. Follow-up chemistry. (4) Tachycardia Is this a current diagnosis for this admission?: Yes Plan: Likely multifactorial secondary to right middle lobe pneumonia and dehydration. Also concern for pulmonary embolus as the patient's d-dimer is elevated to 3.95. Unfortunately he also has an acute kidney injury and so cannot have IV contrast. VQ scan is pending. Patient has already received 2 L normal saline bolus by the ED provider. Continue generous IV fluids. Treatment of pneumonia as above. (5) Acute kidney injury Is this a current diagnosis for this admission?: Yes Plan: Prerenal secondary to dehydration. Patient is admitted with creatinine of 1.99 and BUN of 27. He has been provided 2 L normal saline bolus by the ED provider. We will continue generous IV fluids. Avoid nephrotoxic medications as able. Follow-up chemistry. (6) Hypokalemia Is this a current diagnosis for this admission?: Yes Plan: Potassium 2.7. Magnesium pending; anticipate that he will require replacement. He received potassium 20 mEq by IV and 40 p.o. per ED provider. We will provide an additional 20 by IV for total of 80 mEq replacement. Monitor on continuous cardiac telemetry. Follow-up chemistry. (7) Tobacco dependence Is this a current diagnosis for this admission?: Yes Plan: Smoking cessation is encouraged. Nicotine replacement therapies are provided. (8) Alcohol dependence Qualifiers: Substance use status: uncomplicated Qualified Code(s): F10.20 - Alcohol dependence, uncomplicated Is this a current diagnosis for this admission?: Yes Plan: The patient admits to drinking a sixpack of beer weekly. He reports that this is been long-standing for numerous years. He denies prior history of alcohol withdrawal. Magnesium pending. Multivitamin, folic acid, and thiamine daily. Valium 2 mg every 6 hours as needed; escalate if patient develops evidence of withdrawal. - Time Time Spent with patient: 35 or more minutes Medications reviewed and adjusted accordingly: Yes Anticipated discharge: Home - Inpatient Certification Based on my medical assessment, after consideration of the patient's comorbidities, presenting symptoms, or acuity I expect that the services needed warrant INPATIENT care.: Yes I certify that my determination is in accordance with my understanding of Medicare's requirements for reasonable and necessary INPATIENT services [42 CFR 412.3e].: Yes Medical Necessity: Need Close Monitoring Due to Risk of Patient Decompensation, Need For IV Fluids, Need for Nebulizer Therapy and Monitoring of Response, Need for IV Antibiotics, Risk of Diagnosis Which Will Require Inpatient Eval/Care/Monitoring
--- NOTE | 2019-06-12 21:10 | RADIOLOGY REPORT (SQ) ---
EXAM DESCRIPTION: NUCLEAR MEDICINE VENTILATION-PERFUSION SCAN CLINICAL HISTORY: Difficulty breathing. COMPARISON: Chest x-ray from today. TECHNIQUE: Ventilation scan with 30 mCi of DTPA. Perfusion scan with 5 mCi of technetium 99 macroaggregated albumin. FINDINGS: The ventilation scan shows large defect in the posterior right upper lobe. The perfusion scan shows large defect in the right upper lobe. IMPRESSION: Large matching defect in the right upper lobe consistent with abnormal chest x-ray which demonstrated large consolidation. Low probability of pulmonary embolism.
[2019-06-12 21:59] LABS: A TYPE INFLUENZA AG NEGATIVE (NEGATIVE); B INFLUENZA AG NEGATIVE (NEGATIVE)
[2019-06-12] MEDS ORDERED: FAMOTIDINE 20 MG TABLET PO SCH (22:00)
[2019-06-12] MEDS ORDERED: HEPARIN SOD (PORCINE) 5,000 UNIT/ML 1 ML VIAL SUBCUT SCH (22:00)
[2019-06-12] MEDS: FAMOTIDINE 20 MG TABLET PO SCH (22:14)
[2019-06-12] MEDS: GUAIFENESIN 600 MG TABLET.SA PO SCH (22:14)
[2019-06-12] MEDS: MAGNESIUM SULFATE/D5W 1 GM/100 ML RTUPB IV SCH ×2 (22:29→23:50)
[2019-06-12] MEDS ORDERED: INFLUENZA QUAD (6MOS+) 2019-20 VAC 0.5 ML SYR IM ONE (23:33)
[2019-06-12] MEDS: NORMAL SALINE 1000 ML 1,000 ML IV PRN (23:47)
--- NOTE | 2019-06-12 23:49 | EKG REPORT ---
SEVERITY:- ABNORMAL ECG - SINUS TACHYCARDIA DONAL, CONSIDER BIATRIAL ABNORMALITIES LVH WITH SECONDARY REPOLARIZATION ABNORMALITY : Confirmed by: Sophia Lloyd 12-Jun-2019 23:48:35
[2019-06-13] MEDS: IPRATROPIUM/ALBUTEROL 0.5-2.5 MG/3 ML AMPUL NEB SCH ×4 (02:30→19:51)
[2019-06-13] MEDS: DIAZEPAM 2 MG TABLET PO PRN ×2 (02:56→18:31)
[2019-06-13 05:58] LABS: ALBUMIN 3.3 g/dL (3.5-5.0); ALKALINE PHOSPHATASE 33 U/L (38-126); ANION GAP 11 (5-19); ASPARTATE AMINO TRANSFERASE 71 U/L (17-59); BILIRUBIN,DIRECT 0.7 mg/dL (0.0-0.4); BILIRUBIN,TOTAL 1.3 mg/dL (0.2-1.3); BLOOD UREA NITROGEN 19 mg/dL (7-20); CALCIUM 8.7 mg/dL (8.4-10.2); CARBON DIOXIDE 26 mmol/L (22-30); CHLORIDE 94 mmol/L (98-107); GLUCOSE 205 mg/dL (75-110)
[2019-06-13 06:26] LABS: POTASSIUM 2.5 mmol/L (3.6-5.0)
[2019-06-13 06:37] LABS: HEMOGLOBIN 10.9 g/dL (13.5-17.0); MEAN CORPUSCULAR VOLUME 80 fl (80-97)
[2019-06-13 06:59] LABS: MEAN CORPUSCULAR HEMOGLOBIN 26.4 pg (27.0-33.4); MEAN CORPUSCULAR HGB CONC 33.1 g/dL (32.0-36.0); RED BLOOD COUNT 4.13 10^6/uL (4.35-5.55); RED CELL DISTRIBUTION WIDTH 19.2 % (11.5-14.0); WHITE BLOOD COUNT 3.7 10^3/uL (4.0-10.5)
[2019-06-13] MEDS ORDERED: POTASSIUM CHLORIDE 10 MEQ TABLET.ER PO ONE ×2 (07:00→15:36)
[2019-06-13 07:01] LABS: PLATELET COUNT 45 10^3/uL (150-450)
[2019-06-13 07:22] LABS: ABSOLUTE LYMPHOCYTES# (MANUAL) 0.6 10^3/uL (0.5-4.7); ABSOLUTE MONOCYTES # (MANUAL) 0.4 10^3/uL (0.1-1.4); BAND NEUTROPHILS % (MANUAL) 14 % (3-5); BASOPHILS % (MANUAL) 0 % (0-2); EOSINOPHILS % (MANUAL) 0 % (0-6); LYMPHOCYTES % (MANUAL) 15 % (13-45); MONOCYTES % (MANUAL) 12 % (3-13); SEGMENTED NEUTROPHILS % (MAN) 59 % (42-78); TOTAL CELLS COUNTED 100
[2019-06-13 07:26] LABS: TOXIC GRANULATION 2+
[2019-06-13 07:27] LABS: ANISOCYTOSIS 2+; HYPOCHROMASIA SLIGHT; PLATELET COMMENT DECREASED; POLYCHROMASIA SLIGHT; TARGET CELLS 1+
[2019-06-13] MEDS: POTASSIUM CHLORIDE 20 MEQ/50 ML RTU IV SCH ×2 (07:49→10:44)
[2019-06-13 09:02] LABS: ARTERIAL BLOOD BASE EXCESS 2.7 mmol/L; ARTERIAL BLOOD H2CO3 1.01 mmol/L (1.05-1.35); ARTERIAL BLOOD HCO3 25.6 mmol/L (20-24); ARTERIAL BLOOD O2 SATURATION 95.9 % (94-98); ARTERIAL BLOOD PCO2 33.6 mmHg (35-45); ARTERIAL BLOOD PO2 73.1 mmHg (80-100); ARTERIAL BLOOD TOTAL CO2 26.6 mmol/L (23-27)
[2019-06-13 09:03] LABS: ARTERIAL BLOOD FIO2 21%
[2019-06-13] MEDS ORDERED: NORMAL SALINE 1000 ML 1,000 ML IV ONE (09:35)
[2019-06-13] MEDS: NICOTINE 21 MG/24 HR PATCH.TD24 TD SCH (09:46)
[2019-06-13] MEDS: GUAIFENESIN 600 MG TABLET.SA PO SCH ×2 (09:46→21:56)
[2019-06-13] MEDS: FOLIC ACID 1 MG TABLET PO SCH (09:46)
[2019-06-13] MEDS: MULTIVITAMIN TABLET PO SCH (09:46)
[2019-06-13] MEDS: AMLODIPINE BESYLATE 5 MG TABLET PO SCH (09:58)
[2019-06-13] MEDS ORDERED: THIAMINE HCL 100 MG TABLET PO SCH (10:00)
[2019-06-13] MEDS: NORMAL SALINE 1000 ML 1,000 ML IV PRN (10:44)
[2019-06-13] MEDS: AZITHROMYCIN 500 MG in DEXTROSE 5%-WATER 250 ML IV SCH (12:54)
[2019-06-13 13:36] LABS: PATH REVIEW PATHOLOGIST REVIEWED
[2019-06-13] MEDS: ACETYLCYSTEINE 20% SOLN 800 MG/4 ML VIAL.NEB NEB SCH ×2 (13:59→19:51)
[2019-06-13 14:41] LABS: ANION GAP 13 (5-19); BLOOD UREA NITROGEN 19 mg/dL (7-20); CALCIUM 8.7 mg/dL (8.4-10.2); CARBON DIOXIDE 24 mmol/L (22-30); CHLORIDE 96 mmol/L (98-107); GLUCOSE 156 mg/dL (75-110)
[2019-06-13] MEDS ORDERED: POTASSI CL 20 MEQ/50 ML RIDER 20 MEQ/50 ML RTUPB IV ONE (15:36)
[2019-06-13] MEDS: CEFTRIAXONE 1 GM/D5W RTU 1 GM/50 ML RTUPB IV SCH (17:09)
--- NOTE | 2019-06-13 17:38 | PDOC PROGRESS REPORT ---
Subjective Progress Note for:: 06/13/19 Subjective:: CAMRON DANGELO is a 58 year old male with a past medical history significant for hypertension, asthma, tobacco dependency, alcohol dependency who was admitted 06/12/2019 for sepsis related to community-acquired pneumonia. Patient was seen on morning rounds. He was found resting in bed, comfortably, on room air. He is noted to be borderline hypoxic with an ABG showing PaO2 of 73 with an SPO2 of 95. I have asked nursing to encourage supplemental oxygen until he is no longer tachycardic or tachypneic. He is alert and oriented x4, though with slightly tremulous and anxious disposition (somewhat concerning for early alcohol withdrawal though could be attributed to his acute illness). He reports continued shortness of breath and productive cough. However, he does state that he is feeling better today. He denies fever, chest pain, palpitations, orthopnea, abdominal pain, nausea vomiting and diarrhea. He has no other questions or concerns at this time. No concerns per nursing. Reason For Visit: PNEUMONIA Physical Exam Vital Signs: Temp Pulse Resp BP Pulse Ox 99.3 F 123 H 16 130/80 H 98 06/13/19 15:09 06/13/19 15:09 06/13/19 15:09 06/13/19 15:09 06/13/19 15:09 Intake & Output 06/12/19 06/13/19 06/14/19 06:59 06:59 06:59 Intake Total 2537 2950 Balance 2537 2950 Weight 61.8 kg 61.8 kg General appearance: PRESENT: no acute distress, cooperative, disheveled, mild distress, thin, well-developed, well-nourished Head exam: PRESENT: atraumatic, normocephalic Eye exam: PRESENT: conjunctiva pink, EOMI, PERRLA. ABSENT: scleral icterus Ear exam: PRESENT: normal external ear exam Mouth exam: PRESENT: moist, tongue midline Respiratory exam: PRESENT: prolonged expiratory phas, rhonchi - Throughout, symmetrical, tachypnea, unlabored, wheezes - Right side. ABSENT: rales Cardiovascular exam: PRESENT: RRR, +S1, +S2, tachycardia. ABSENT: diastolic murmur, rubs, systolic murmur Pulses: PRESENT: normal dorsalis pedis pul Vascular exam: PRESENT: normal capillary refill GI/Abdominal exam: PRESENT: normal bowel sounds, soft. ABSENT: distended, guarding, mass, organolmegaly, rebound, tenderness Rectal exam: PRESENT: deferred Extremities exam: PRESENT: full ROM. ABSENT: calf tenderness, clubbing, pedal edema Neurological exam: PRESENT: alert, awake, oriented to person, oriented to place, oriented to time, oriented to situation, CN II-XII grossly intact. ABSENT: motor sensory deficit Psychiatric exam: PRESENT: appropriate affect, normal mood. ABSENT: homicidal ideation, suicidal ideation Skin exam: PRESENT: dry, intact, warm. ABSENT: cyanosis, rash Results Laboratory Results: 06/13/19 05:20 06/13/19 13:43 06/12/19 06/12/19 06/12/19 16:36 16:36 16:36 WBC 4.0 RBC 4.62 Hgb 12.1 L Hct 36.9 L MCV 80 MCH 26.1 L MCHC 32.7 RDW 18.8 H Plt Count 67 L Seg Neutrophils % Not Reportable Carbonic Acid HCO3/H2CO3 Ratio ABG pH ABG pCO2 ABG pO2 ABG HCO3 ABG O2 Saturation ABG Base Excess FiO2 Sodium 137.3 Potassium 2.7 L* Chloride 96 L Carbon Dioxide 21 L Anion Gap 20 H BUN 27 H Creatinine 1.99 H Est GFR ( Amer) 42 L Glucose 120 H Lactic Acid Calcium 9.2 Magnesium Total Bilirubin 2.6 H AST 111 H Alkaline Phosphatase 38 Ammonia Total Protein 7.1 Albumin 4.1 Urine Color SENDY Urine Appearance CLOUDY Urine pH 6.0 Ur Specific [place] 1.013 Urine Protein >=500 H Urine Glucose (UA) 50 H Urine Ketones NEGATIVE Urine Blood MODERATE H Urine Nitrite NEGATIVE Ur Leukocyte Esterase NEGATIVE Urine WBC (Auto) 14 Urine RBC (Auto) 4 06/12/19 06/13/19 06/13/19 16:36 05:20 05:20 WBC 3.7 L RBC 4.13 L Hgb 10.9 L Hct 33.0 L MCV 80 MCH 26.4 L MCHC 33.1 RDW 19.2 H Plt Count 45 L Seg Neutrophils % Not Reportable Carbonic Acid HCO3/H2CO3 Ratio ABG pH ABG pCO2 ABG pO2 ABG HCO3 ABG O2 Saturation ABG Base Excess FiO2 Sodium 131.0 L Potassium 2.5 L* Chloride 94 L Carbon Dioxide 26 Anion Gap 11 BUN 19 Creatinine 0.87 Est GFR ( Amer) > 60 Glucose 205 H Lactic Acid Calcium 8.7 Magnesium 1.2 L* Total Bilirubin 1.3 AST 71 H Alkaline Phosphatase 33 L Ammonia Total Protein 6.0 L Albumin 3.3 L Urine Color Urine Appearance Urine pH Ur Specific [place] Urine Protein Urine Glucose (UA) Urine Ketones Urine Blood Urine Nitrite Ur Leukocyte Esterase Urine WBC (Auto) Urine RBC (Auto) 06/13/19 06/13/19 06/13/19 05:20 08:40 09:47 WBC RBC Hgb Hct MCV MCH MCHC RDW Plt Count Seg Neutrophils % Carbonic Acid 1.01 L HCO3/H2CO3 Ratio 25:1 ABG pH 7.50 H ABG pCO2 33.6 L ABG pO2 73.1 L ABG HCO3 25.6 H ABG O2 Saturation 95.9 ABG Base Excess 2.7 FiO2 21% Sodium Potassium Chloride Carbon Dioxide Anion Gap BUN Creatinine Est GFR ( Amer) Glucose Lactic Acid Calcium Magnesium 1.8 Total Bilirubin AST Alkaline Phosphatase Ammonia < 8.7 L Total Protein Albumin Urine Color Urine Appearance Urine pH Ur Specific [place] Urine Protein Urine Glucose (UA) Urine Ketones Urine Blood Urine Nitrite Ur Leukocyte Esterase Urine WBC (Auto) Urine RBC (Auto) 06/13/19 06/13/19 13:43 16:11 WBC RBC Hgb Hct MCV MCH MCHC RDW Plt Count Seg Neutrophils % Carbonic Acid HCO3/H2CO3 Ratio ABG pH ABG pCO2 ABG pO2 ABG HCO3 ABG O2 Saturation ABG Base Excess FiO2 Sodium 133.1 L Potassium 3.0 L* Chloride 96 L Carbon Dioxide 24 Anion Gap 13 BUN 19 Creatinine 0.72 Est GFR ( Amer) > 60 Glucose 156 H Lactic Acid 2.1 Calcium 8.7 Magnesium Total Bilirubin AST Alkaline Phosphatase Ammonia Total Protein Albumin Urine Color Urine Appearance Urine pH Ur Specific [place] Urine Protein Urine Glucose (UA) Urine Ketones Urine Blood Urine Nitrite Ur Leukocyte Esterase Urine WBC (Auto) Urine RBC (Auto) 06/12/19 06/12/19 16:36 16:36 Creatine Kinase 256 H CK-MB (CK-2) 3.16 Troponin I < 0.012 Impressions: Lung Scan-VQ NM 06/12/19 00:00 IMPRESSION: Large matching defect in the right upper lobe consistent with abnormal chest x-ray which demonstrated large consolidation. Low probability of pulmonary embolism. Chest X-Ray 06/12/19 16:12 IMPRESSION: DENSE INFILTRATE IN THE RIGHT LUNG CONSISTENT WITH PNEUMONIA. Assessment and Plan - Diagnosis (1) Pneumonia Qualifiers: Pneumonia type: due to unspecified organism Laterality: right Lung location: middle lobe of lung Qualified Code(s): J18.9 - Pneumonia, unspecified organism Is this a current diagnosis for this admission?: Yes Plan: Patient presented to the emergency department today with a complaint of 2 to 3 days of rapidly worsening dyspnea on exertion, productive cough. Chest x-ray demonstrates a dense infiltrate to the right med-lung. WBCs 4.0-> 3.7, though with bandemia 16-> 14. T-max 99.4 last 24 hours. Blood cultures have gram-positive cocci in pairs (1 bottle) Sputum cultures pending. Influenza negative The patient is admitted to the medical floor and continuous cardiac telemetry. We will provide supplemental oxygen as needed maintain saturations greater than 89%. He is empirically placed on IV azithromycin and Rocephin for treatment of community-acquired pneumonia. We will provide schedule and as needed nebulizer treatments. Mucomyst nebulizer twice daily Mucinex twice daily. Incentive spirometer to bedside. (2) Sepsis Qualifiers: Sepsis type: sepsis due to unspecified organism Severe sepsis acute organ dysfunction type: acute renal failure Severe sepsis shock status: without septic shock Is this a current diagnosis for this admission?: Yes Plan: Monitoring closely. Sepsis due to community-acquired pneumonia, present on arrival to the ED, evidenced by Platelets 67, acute kidney injury, liver dysfunction, tachycardia, tachypnea, bandemia, elevated d-dimer, and pneumonia on chest x-ray in a patient who appears acutely ill. Anion gap acidosis and lactic acidosis have resolved. The patient received a 2 L normal saline bolus by the ED provider (30 mL's per kilogram). We will continue generous IV fluids. Cultures and antibiotics as above. (3) Elevated LFTs Is this a current diagnosis for this admission?: Yes Plan: Likely secondary to sepsis, dehydration in patient with chronic alcohol use Hepatitis profile pending. Continue gentle IV fluids. Follow-up chemistry. (4) Tachycardia Is this a current diagnosis for this admission?: Yes Plan: Likely multifactorial secondary to right middle lobe pneumonia and dehydration. Some concern for possible alcohol withdrawal, although, the patient reports that he only drinks 1 beer nightly and has never had withdrawal symptoms in the past. VQ scan ruled out pulmonary embolus. Continue generous IV fluids. Treatment of pneumonia as above. Monitor closely for evidence of alcohol withdrawal. (5) Acute kidney injury Is this a current diagnosis for this admission?: Yes Plan: Resolved; creatinine 0.79 with BUN of 19 today. Prerenal secondary to dehydration. Patient is admitted with creatinine of 1.99 and BUN of 27. We will continue generous IV fluids. Avoid nephrotoxic medications as able. Follow-up chemistry. (6) Hypokalemia Is this a current diagnosis for this admission?: Yes Plan: Potassium 2.7-> 3.0. Magnesium 1.2-> 1.8 Received additional IV and oral replacement today. Monitor on continuous cardiac telemetry. Follow-up chemistry. (7) Tobacco dependence Is this a current diagnosis for this admission?: Yes Plan: Smoking cessation is encouraged. Nicotine replacement therapies are provided. (8) Alcohol dependence Qualifiers: Substance use status: uncomplicated Qualified Code(s): F10.20 - Alcohol dependence, uncomplicated Is this a current diagnosis for this admission?: Yes Plan: The patient admits to drinking a sixpack of beer weekly. He reports that this is been long-standing for numerous years. He denies prior history of alcohol withdrawal. Received magnesium replacement overnight. Continue multivitamin, folic acid, and thiamine daily. Valium 2 mg every 6 hours as needed; escalate if patient develops evidence of withdrawal. (9) Hypomagnesemia Is this a current diagnosis for this admission?: Yes Plan: Mag 1.2-> 1.8 Received IV replacement. Monitor and replace as necessary - Time Time Spent with patient: 25-34 minutes Medications reviewed and adjusted accordingly: Yes Anticipated discharge: Home
[2019-06-13] MEDS ORDERED: DIAZEPAM 5 MG TABLET PO PRN (21:16)
[2019-06-13] MEDS: DIAZEPAM 5 MG TABLET PO SCH (21:56)
[2019-06-13] MEDS: FAMOTIDINE 20 MG TABLET PO SCH (21:56)
[2019-06-13] MEDS: DIAZEPAM INJ 10 MG/2 ML DISP.SYRIN IV PRN (22:17)
[2019-06-14] MEDS: DIAZEPAM 5 MG TABLET PO SCH ×2 (01:57→05:34)
[2019-06-14] MEDS: NORMAL SALINE 1000 ML 1,000 ML IV PRN ×3 (02:01→21:59)
[2019-06-14] MEDS: IPRATROPIUM/ALBUTEROL 0.5-2.5 MG/3 ML AMPUL NEB SCH ×4 (02:15→20:37)
[2019-06-14] MEDS: DIAZEPAM INJ 10 MG/2 ML DISP.SYRIN IV PRN ×2 (04:06→05:29)
[2019-06-14] MEDS ORDERED: CHLORPROMAZINE HCL INJ 25 MG/1 ML AMPULE IV PRN (05:04)
[2019-06-14] MEDS ORDERED: METOPROLOL TARTRATE PF/INJ 5 MG/5 ML SDV IV PRN ×2 (05:04→08:41)
[2019-06-14] MEDS ORDERED: CHLORPROMAZINE HCL INJ 25 MG/1 ML AMPULE ONE (05:05)
[2019-06-14] MEDS ORDERED: ATENOLOL 50 MG TABLET PO ONE (05:15)
[2019-06-14 05:37] LABS: HEPATITS B SURFACE ANTIGEN Negative (Negative)
--- NOTE | 2019-06-14 06:05 | Progress Note ---
Provider Note Provider Note: Critical care: 06/14/2019 Critical care start time: 00:30 Critical care issues: Hypertension, tachycardia, extreme agitation and hallucinations Patient's nursing provider called me to inform me that the patient was extremely agitated and trying to pull out his IV site. Additionally he was diaphoretic and poorly communicative with pressured speech and flight of ideas accompanied by tachycardia and hypertension. Patient was initially treated with IV Valium 10 mg q. one hour as needed for severe agitation, tremors, other alcohol withdrawal symptoms. This met with initial success but the patient became agitated again a little more than an hour later. The 10 mg of Valium was repeated however over the course of the next 2 hours he became less responsive to this therapy. Patient was then given chlorpromazine 25 mg IV every 8 hours as needed for severe agitation and hallucinations. He did improve with this but he continued to be tachycardic and hypertensive. He was then given metoprolol 5 mg IV every 5 minutes x3 doses followed by atenolol 100 mg p.o. with a scheduled nightly dosage of atenolol. Patient's heart rate slowed from the 140s to 160s down to the 110s to 120s and his blood pressure dropped to the 100-110 over 60s. He was then given a 1 L IV fluid bolus. Patient continues to be poorly responsive and agitated as well as significantly diaphoretic. I have asked that the x ray technician service consider accepting him in the ICU as he is no longer appropriate for treatment on a medical floor. Critical care end time: 06:00 Total critical care time: 20 minutes
[2019-06-14 06:46] LABS: HEMATOCRIT 31.1 % (37.9-51.0); HEMOGLOBIN 10.3 g/dL (13.5-17.0); MEAN CORPUSCULAR HEMOGLOBIN 26.3 pg (27.0-33.4); MEAN CORPUSCULAR HGB CONC 33.1 g/dL (32.0-36.0); MEAN CORPUSCULAR VOLUME 80 fl (80-97); RED BLOOD COUNT 3.91 10^6/uL (4.35-5.55); RED CELL DISTRIBUTION WIDTH 18.5 % (11.5-14.0); WHITE BLOOD COUNT 7.4 10^3/uL (4.0-10.5)
[2019-06-14 06:59] LABS: ALKALINE PHOSPHATASE 35 U/L (38-126); ANION GAP 11 (5-19); ASPARTATE AMINO TRANSFERASE 60 U/L (17-59); BILIRUBIN,DIRECT 0.5 mg/dL (0.0-0.4); BLOOD UREA NITROGEN 13 mg/dL (7-20); CALCIUM 8.5 mg/dL (8.4-10.2); CARBON DIOXIDE 25 mmol/L (22-30); CHLORIDE 100 mmol/L (98-107); GLUCOSE 124 mg/dL (75-110); TOTAL PROTEIN 5.8 g/dL (6.3-8.2)
[2019-06-14 07:05] LABS: PLATELET COUNT 44 10^3/uL (150-450)
[2019-06-14 07:10] LABS: POTASSIUM 2.6 mmol/L (3.6-5.0)
[2019-06-14 07:11] LABS: HEPATITIS C VIRUS ANTIBODY <0.1 s/co ratio (0.0-0.9)
[2019-06-14] MEDS ORDERED: PHENOBARBITAL 32.4 MG TABLET PO PRN (07:50)
[2019-06-14] MEDS: ACETYLCYSTEINE 20% SOLN 800 MG/4 ML VIAL.NEB NEB SCH ×2 (08:34→20:37)
--- NOTE | 2019-06-14 09:10 | CRITICAL CARE ADMISSION REPORT ---
HPI Date:: 06/14/19 Time:: 07:00 Reason for ICU Reason:: Alcohol withdrawal HPI: This patient is a 58 yo man with known alcohol abuse. Claimed to drink i six- pack/day, but likely more. He was initially admitted the hospital for a PNA, likely CAP not an asipration in the superior RUL. His symptoms of withdrawal became worse and an ICU admission was requested initially for lack of nursing staff. He has a sitter and in the last 2 hours has been resting, no restraints in the ICU. He currently neds IV antibiotics and benzodiazepines for WD symptoms. History obtained from:: Records and staff - Diagnosis/Plan (2) Alcohol dependence Qualifiers: Substance use status: in withdrawal Is this a current diagnosis for this admission?: Yes Plan: He will need loading of benzodiazepines. Interventions increased to q1h PRN while in the ICU. (3) Hypokalemia Is this a current diagnosis for this admission?: Yes Plan: First K level 2.7. No ectopy. Replace magnesium before we see a major change in potassim (4) Hypomagnesemia Is this a current diagnosis for this admission?: Yes Plan: Most likely is total body depleted. Will give more magnesium (5) Pneumonia Qualifiers: Pneumonia type: due to unspecified organism Laterality: right Lung location: middle lobe of lung Qualified Code(s): J18.9 - Pneumonia, unspecified organism Is this a current diagnosis for this admission?: Yes Plan: Location in lower portion of RUL not typical for aspiration. Continue to treat as a CAP - . Plan Summary: Antibiotics, benzoes and eletrolyte replacement Past Medical History Cardiac Medical History: Reports: Hypertension Pulmonary Medical History: Reports: Asthma Neurological Medical History: Reports: None Endocrine Medical History: Reports: None Renal/ Medical History: Reports: None GI Medical History: Reports: None Musculoskeltal Medical History: Reports: None Psychiatric Medical History: Reports: Tobacco Dependency Denies: Depression Traumatic Medical History: Reports: None Hematology: Reports: None Infectious Medical History: Reports: None Past Surgical History Past Surgical History: Reports: None Social/Family History - Social History Lives with: Family Smoking Status: Current Every Day Smoker Cigarettes Packs Per Day: 0.5 Frequency of Alcohol Use: Rare Amount of Alcoholic Beverages Per Day: Claims 1 six-pack/day Hx Recreational Drug Use: No Drugs: None - Medication/Allergies Home Medications: No Home Medications 03/29/18 Allergies/Adverse Reactions: No Known Allergies Allergy (Verified 10/14/17 10:30) Review of Systems ROS unobtainable: Due to mental status Physical Exam Vital Signs: Temp Pulse Resp BP Pulse Ox 100.1 F 133 H 33 H 100/77 100 06/14/19 06:39 06/14/19 06:39 06/14/19 06:39 06/14/19 06:39 06/14/19 06:39 Intake & Output 06/13/19 06/14/19 06/15/19 06:59 06:59 06:59 Intake Total 2537 4485 Balance 2537 4485 Weight 61.8 kg 67.6 kg Weight/Height Weight 67.6 kg Height 5 ft 11 in General appearance: PRESENT: no acute distress Head exam: PRESENT: atraumatic, normocephalic Eye exam: PRESENT: conjunctiva pink, EOMI, PERRLA. ABSENT: scleral icterus Ear exam: PRESENT: normal external ear exam Mouth exam: PRESENT: moist, tongue midline Respiratory exam: PRESENT: decreased breath sounds, rhonchi Cardiovascular exam: PRESENT: tachycardia Vascular exam: PRESENT: normal capillary refill GI/Abdominal exam: PRESENT: normal bowel sounds, soft. ABSENT: distended, guarding, mass, organolmegaly, rebound, tenderness Rectal exam: PRESENT: deferred Extremities exam: PRESENT: full ROM. ABSENT: calf tenderness, clubbing, pedal edema Neurological exam: PRESENT: altered Psychiatric exam: PRESENT: agitated Skin exam: PRESENT: dry, intact, warm. ABSENT: cyanosis, rash Laboratory/Radiographs Laboratory Results: 06/14/19 05:41 06/14/19 05:41 06/13/19 06/13/19 06/13/19 08:40 09:47 13:43 WBC RBC Hgb Hct MCV MCH MCHC RDW Plt Count Carbonic Acid 1.01 L HCO3/H2CO3 Ratio 25:1 ABG pH 7.50 H ABG pCO2 33.6 L ABG pO2 73.1 L ABG HCO3 25.6 H ABG O2 Saturation 95.9 ABG Base Excess 2.7 FiO2 21% Sodium 133.1 L Potassium 3.0 L* Chloride 96 L Carbon Dioxide 24 Anion Gap 13 BUN 19 Creatinine 0.72 Est GFR ( Amer) > 60 Glucose 156 H Lactic Acid Calcium 8.7 Magnesium Total Bilirubin AST Alkaline Phosphatase Ammonia < 8.7 L Total Protein Albumin 06/13/19 06/14/19 06/14/19 16:11 05:41 05:41 WBC 7.4 RBC 3.91 L Hgb 10.3 L Hct 31.1 L MCV 80 MCH 26.3 L MCHC 33.1 RDW 18.5 H Plt Count 44 L Carbonic Acid HCO3/H2CO3 Ratio ABG pH ABG pCO2 ABG pO2 ABG HCO3 ABG O2 Saturation ABG Base Excess FiO2 Sodium 136.1 L Potassium 2.6 L* Chloride 100 Carbon Dioxide 25 Anion Gap 11 BUN 13 Creatinine 0.67 Est GFR ( Amer) > 60 Glucose 124 H Lactic Acid 2.1 Calcium 8.5 Magnesium 1.8 Total Bilirubin 1.0 AST 60 H Alkaline Phosphatase 35 L Ammonia Total Protein 5.8 L Albumin 3.0 L 06/12/19 06/12/19 16:36 16:36 Creatine Kinase 256 H CK-MB (CK-2) 3.16 Troponin I < 0.012 Impressions: Lung Scan-VQ NM 06/12/19 00:00 IMPRESSION: Large matching defect in the right upper lobe consistent with abnormal chest x-ray which demonstrated large consolidation. Low probability of pulmonary embolism. Chest X-Ray 06/12/19 16:12 IMPRESSION: DENSE INFILTRATE IN THE RIGHT LUNG CONSISTENT WITH PNEUMONIA. All labs, radiographs, diagnostic studies and EKGs were personally reviewed: Yes In addition, reports of radiographic and diagnostic studies were read: Yes Critical Time Critical Time (minutes): 40 -: The care of a critically ill patient is dynamic. This note represents a static moment in the admission process. orders and treatments may be given simulataneously and urgentl, and time is not junior sales representative of the treatment process. This patient requires Critical Care secondary to life threating organ or limb dysfunction. Without the need for Critical Care services, the patient is at risk for increasid mortality and morbidity.
[2019-06-14] MEDS: POTASSI CL 20 MEQ/50 ML RIDER 20 MEQ/50 ML RTUPB IV SCH ×4 (09:37→15:13)
[2019-06-14] MEDS ORDERED: POTASSIUM CHLORIDE 10 MEQ TABLET.ER PO SCH (10:00)
[2019-06-14] MEDS: LORAZEPAM INJ 2 MG/1 ML VIAL IV PRN ×4 (10:45→16:06)
[2019-06-14] MEDS: THIAMINE HCL 100 MG, FOLIC ACID 1 MG in NORMAL SALINE 250 ML IV SCH (10:45)
[2019-06-14] MEDS: NICOTINE 21 MG/24 HR PATCH.TD24 TD SCH (10:45)
[2019-06-14] MEDS: GUAIFENESIN 600 MG TABLET.SA PO SCH (10:46)
[2019-06-14] MEDS: FOLIC ACID 1 MG TABLET PO SCH (10:46)
[2019-06-14] MEDS: AMLODIPINE BESYLATE 5 MG TABLET PO SCH (10:46)
[2019-06-14] MEDS: MULTIVITAMIN TABLET PO SCH (10:46)
[2019-06-14] MEDS: AZITHROMYCIN 500 MG in DEXTROSE 5%-WATER 250 ML IV SCH (13:10)
[2019-06-14] MEDS ORDERED: ETOMIDATE INJ/PF 20 MG/10 ML SDV IV ONE (16:29)
[2019-06-14] MEDS ORDERED: MIDAZOLAM HCL 50 MG/100 ML RTUINJ ONE (16:31)
[2019-06-14] MEDS: PROPOFOL 1,000 MG/100 ML INFUS..BTL IV PRN ×2 (16:40→21:09)
[2019-06-14] MEDS: MIDAZOLAM HCL 50 MG/100 ML RTUINJ IV PRN ×2 (16:40→21:59)
[2019-06-14] MEDS ORDERED: PROPOFOL 1,000 MG/100 ML INFUS..BTL IV ONE (16:42)
--- NOTE | 2019-06-14 16:55 | Progress Note ---
Provider Note Provider Note: Patient's mental status has declined as expected with ativan. He is exhibiting Chanye-Tong respirations with total airway occlusion. Although his oxygenation is 100%, his mental status, need for ativan and secretions put him at risk for respiratory emergencies. Therefore he was electively intubated with a #8 ETT. CXR pending. Now on versed and propofol drips. Critical care time 45 minutes total.
[2019-06-14] MEDS ORDERED: PHARMACY COMMUNICATION ORDER MC NR (17:00)
[2019-06-14] MEDS ORDERED: ACETAMINOPHEN 325 MG TABLET NG PRN (17:00)
--- NOTE | 2019-06-14 17:59 | RADIOLOGY REPORT (SQ) ---
EXAM DESCRIPTION: CHEST SINGLE VIEW COMPLETED DATE/TIME: 06/14/2019 5:19 pm REASON FOR STUDY: Just intubated, check tube placement COMPARISON: AP chest 06/12/2019, 1624 hours EXAM PARAMETERS: NUMBER OF VIEWS: One view. TECHNIQUE: Single frontal radiographic view of the chest acquired. RADIATION DOSE: NA LIMITATIONS: None. FINDINGS: LUNGS AND PLEURA: Dense consolidation persists in the right mid lung. There is now diffuse bilateral airspace disease, new compared to 1624 hours worrisome for pulmonary e beni. Endotracheal tube tip pointing towards the right mainstem bronchus. Findings discussed with Dr. Avtar juarez No pneumothorax. No pleural effusions. MEDIASTINUM AND HILAR STRUCTURES: No masses. Contour normal. HEART AND VASCULAR STRUCTURES: No cardiomegaly BONES: No acute findings. HARDWARE: Endotracheal tube tip pointing toward the right mainstem bronchus. Physician notified. Na sogastric tube tip in the stomach, side port at the GE junction OTHER: No other significant finding. IMPRESSION: Endotracheal tube tip pointing toward the right mainstem bronchus Increasing diffuse bilateral airspace disease worrisome for pulmonary edema superimposed on right mid lung aspiration pneumonia. TECHNICAL DOCUMENTATION: JOB ID: [id number] [employer]- All Rights Reserved Reading location - IP/workstation name: [email or web address]
--- NOTE | 2019-06-14 18:49 | RADIOLOGY REPORT (SQ) ---
EXAM DESCRIPTION: CHEST SINGLE VIEW COMPLETED DATE/TIME: 06/14/2019 6:33 pm REASON FOR STUDY: ETT placement COMPARISON: Chest films 06/14/2019 1713 hours, 1624 hours EXAM PARAMETERS: NUMBER OF VIEWS: One view. TECHNIQUE: Single frontal radiographic view of the chest acquired. RADIATION DOSE: NA LIMITATIONS: None. FINDINGS: LUNGS AND PLEURA: Dense consolidation in the right upper lobe and superior segment right l ower lobe worrisome for aspiration pneumonia. This is similar compared to films from earlier today. Improved aeration compared to films from 1713 hours. No pulmonary edema. No pleural effusion. No p neumothorax. MEDIASTINUM AND HILAR STRUCTURES: No masses. Contour normal. HEART AND VASCULAR STRUCTURES: Heart normal in size. Normal vasculature. BONES: No acute findings. HARDWARE: Endotracheal tube tip midtrachea, about 4 cm above the marek. Nasogastric tube tip and si de port in the stomach. OTHER: No other significant finding. IMPRESSION: Persistent dense consolidation in the right upper lobe and superior segment right lower lobe likely aspiration pneumonia. No pulmonary edema, pleural effusion or pneumothorax Endotracheal tube, nasogastric tube in good positioning TECHNICAL DOCUMENTATION: JOB ID: [id number] [employer]- All Rights Reserved Reading location - IP/workstation name: [email or web address]
[2019-06-14] MEDS: CEFTRIAXONE 1 GM/D5W RTU 1 GM/50 ML RTUPB IV SCH (18:55)
[2019-06-14] MEDS: POTASSIUM CHLORIDE 20 MEQ PACKET NG SCH (18:56)
[2019-06-14] MEDS: FAMOTIDINE 20 MG TABLET NG SCH (21:10)
[2019-06-14] MEDS ORDERED: ATENOLOL 50 MG TABLET PO SCH (22:00)
[2019-06-14] MEDS: ATENOLOL 50 MG TABLET NG SCH (22:00)
[2019-06-14 22:07] LABS: POTASSIUM 3.7 mmol/L (3.6-5.0)
[2019-06-15] MEDS: MIDAZOLAM HCL 50 MG/100 ML RTUINJ IV PRN ×3 (02:48→23:57)
[2019-06-15] MEDS: IPRATROPIUM/ALBUTEROL 0.5-2.5 MG/3 ML AMPUL NEB SCH ×4 (02:58→21:09)
[2019-06-15] MEDS: PROPOFOL 1,000 MG/100 ML INFUS..BTL IV PRN ×2 (03:55→15:30)
[2019-06-15] MEDS: NORMAL SALINE 1000 ML 1,000 ML IV PRN ×3 (04:53→21:41)
--- NOTE | 2019-06-15 08:20 | PDOC CRITICAL CARE PROG REPORT ---
General Date:: 06/15/19 ICU Day:: 2 Ventilator Day:: 2 Hospital Day:: 4 Events in the past 12 to 24 Hours:: Intubated and placed on versed drip. Suctioned for much secretions. Review of systems relevant to events:: Respiratory and neuro Reason for ICU Addmission:: Alcohol withdrawal, acute respiratory failure with increased WOB not hypoxia or hypercarbia - Medications: Medications reviewed and adjusted accordingly: Yes Vasopressors:: None Sedation:: Propofol and versed Physical Exam Vital Signs: Temp Pulse Resp BP Pulse Ox 98.3 F 90 27 H 120/84 100 06/15/19 05:55 06/15/19 02:55 06/15/19 06:16 06/15/19 06:16 06/15/19 06:16 Intake & Output 06/14/19 06/15/19 06/16/19 06:59 06:59 06:59 Intake Total 4485 2893.2 Output Total 835 Balance 4485 2058.2 Weight 67.6 kg 61.9 kg Weight/Height Weight 61.9 kg Height 5 ft 11 in General appearance: PRESENT: no acute distress, thin Head exam: PRESENT: atraumatic, normocephalic Eye exam: PRESENT: PERRLA Ear exam: PRESENT: normal external ear exam Mouth exam: PRESENT: dry mucosa, other - NG and OG present Respiratory exam: PRESENT: crackles, decreased breath sounds, other - Much alansi secretions. Cardiovascular exam: PRESENT: tachycardia Vascular exam: PRESENT: normal capillary refill GI/Abdominal exam: PRESENT: normal bowel sounds, soft. ABSENT: distended, guarding, mass, organolmegaly, rebound, tenderness Rectal exam: PRESENT: deferred Gentrourinary exam: PRESENT: indwelling catheter Extremities exam: PRESENT: full ROM. ABSENT: calf tenderness, clubbing, pedal edema Neurological exam: PRESENT: altered, other - Sedated Skin exam: PRESENT: dry, intact, warm. ABSENT: cyanosis, rash Tubes/Lines: PRESENT: Endotracheal Tube, Nasogastic Tube Laboratory/Radiographs Laboratory Results: 06/14/19 05:41 06/14/19 21:23 06/14/19 21:23 Potassium 3.7 D Magnesium 1.8 06/12/19 06/12/19 16:36 16:36 Creatine Kinase 256 H CK-MB (CK-2) 3.16 Troponin I < 0.012 Impressions: Lung Scan-VQ NM 06/12/19 00:00 IMPRESSION: Large matching defect in the right upper lobe consistent with abnormal chest x-ray which demonstrated large consolidation. Low probability of pulmonary embolism. Chest X-Ray 06/14/19 00:00 IMPRESSION: Persistent dense consolidation in the right upper lobe and superior segment right lower lobe likely aspiration pneumonia. No pulmonary edema, pleural effusion or pneumothorax Endotracheal tube, nasogastric tube in good positioning All labs, radiographs, diagnostic studies and EKGs were personally reviewed: Yes In addition, reports of radiographic and diagnostic studies were read: Yes Assessment and Plan - Diagnosis (1) Acute kidney injury Is this a current diagnosis for this admission?: Yes Plan: GFR > 60. Cr 0.64. Resolved (2) Alcohol dependence Qualifiers: Substance use status: in withdrawal Is this a current diagnosis for this admission?: Yes Plan: Versed drip maintained for alcohol withdrawal. When HR stable and patient is less delirious will discontinue versed. (3) Hypokalemia Is this a current diagnosis for this admission?: Yes Plan: Serum hypokalemia resolved at 3.7. Will continue potassium loading as total body potassium likely still low. Will lower to daily. (4) Hypomagnesemia Is this a current diagnosis for this admission?: Yes Plan: Serum magnesium resolved. Will give 2 more grams. (5) Pneumonia Qualifiers: Pneumonia type: due to unspecified organism Laterality: right Lung location: middle lobe of lung Qualified Code(s): J18.9 - Pneumonia, unspecified organism Is this a current diagnosis for this admission?: Yes Plan: Culture pending. Still has much secretions which is likely the reason for intubation need along with mental status. Plan Summary: Continue vent support for now. He will need aggressive suctioning. Antibiotics. Benzodiazepines for withdrawal. Critical Time Critical Time (minutes): 40 Level of Care: ICU Anticipated discharge: Home Within: Other - Too early to tell. -: 1. The care of a critical patient is a dynamic process. This note is a wireless sales representative synopsis but static in nature. The timeframe for treatments given in order is not necessary the actual time these treatments may have been done. 2. This patient requires critical care secondary to ongoing requirements for therapy not offered or safe outside the critical care environment. Transfer to a lower level of care with altered life or limb morbidity and mortality. 3. Multidisciplinary rounds completed. 4. ABCDE bundle addressed.
[2019-06-15] MEDS: ACETYLCYSTEINE 20% SOLN 800 MG/4 ML VIAL.NEB NEB SCH ×2 (08:25→21:09)
[2019-06-15] MEDS: POTASSIUM CHLORIDE 20 MEQ PACKET NG SCH ×2 (09:40→18:34)
[2019-06-15] MEDS: NICOTINE 21 MG/24 HR PATCH.TD24 TD SCH (09:40)
[2019-06-15] MEDS: MULTIVITAMINS W-IRON TABLET, CHEWABLE NG SCH (09:41)
[2019-06-15] MEDS: THIAMINE HCL 100 MG, FOLIC ACID 1 MG in NORMAL SALINE 250 ML IV SCH (09:47)
[2019-06-15] MEDS: AMLODIPINE BESYLATE 5 MG TABLET NG SCH (09:47)
[2019-06-15] MEDS ORDERED: FOLIC ACID 1 MG TABLET NG SCH (10:00)
[2019-06-15] MEDS: AZITHROMYCIN 500 MG in DEXTROSE 5%-WATER 250 ML IV SCH (11:37)
[2019-06-15] MEDS: CEFTRIAXONE 1 GM/D5W RTU 1 GM/50 ML RTUPB IV SCH (18:34)
[2019-06-15] MEDS: FAMOTIDINE 20 MG TABLET NG SCH (21:26)
[2019-06-15] MEDS: ATENOLOL 50 MG TABLET NG SCH (21:41)
[2019-06-16] MEDS: PROPOFOL 1,000 MG/100 ML INFUS..BTL IV PRN ×3 (00:01→21:50)
[2019-06-16] MEDS: IPRATROPIUM/ALBUTEROL 0.5-2.5 MG/3 ML AMPUL NEB SCH ×4 (02:06→20:52)
[2019-06-16 04:52] LABS: ANION GAP 7 (5-19); BLOOD UREA NITROGEN 6 mg/dL (7-20); CALCIUM 8.2 mg/dL (8.4-10.2); CARBON DIOXIDE 29 mmol/L (22-30); CHLORIDE 103 mmol/L (98-107); GLUCOSE 102 mg/dL (75-110)
[2019-06-16] MEDS: POTASSIUM CHLORIDE 20 MEQ PACKET NG SCH ×5 (05:30→17:19)
[2019-06-16] MEDS: NORMAL SALINE 1000 ML 1,000 ML IV PRN ×3 (05:52→21:47)
[2019-06-16] MEDS: MIDAZOLAM HCL 50 MG/100 ML RTUINJ IV PRN ×4 (07:13→23:14)
[2019-06-16] MEDS: ACETYLCYSTEINE 20% SOLN 800 MG/4 ML VIAL.NEB NEB SCH ×2 (08:08→20:52)
[2019-06-16 09:01] LABS: HEMATOCRIT 31.7 % (37.9-51.0); HEMOGLOBIN 10.2 g/dL (13.5-17.0); MEAN CORPUSCULAR HEMOGLOBIN 25.8 pg (27.0-33.4); MEAN CORPUSCULAR HGB CONC 32.1 g/dL (32.0-36.0); MEAN CORPUSCULAR VOLUME 80 fl (80-97); RED BLOOD COUNT 3.95 10^6/uL (4.35-5.55); RED CELL DISTRIBUTION WIDTH 18.6 % (11.5-14.0)
--- NOTE | 2019-06-16 09:01 | PDOC CRITICAL CARE PROG REPORT ---
General Date:: 06/16/19 ICU Day:: 3 Hospital Day:: 5 Events in the past 12 to 24 Hours:: Continued pulmonarysuctioning. Cultures fiallizing Review of systems relevant to events:: Respiratory, neuro. Reason for ICU Addmission:: Alcohol withdrawal, acute respiratory failure with increased WOB not hypoxia or hypercarbia - Medications: Medications reviewed and adjusted accordingly: Yes Vasopressors:: None Sedation:: Diprivan and versed. Physical Exam Vital Signs: Temp Pulse Resp BP Pulse Ox 98.9 F 85 24 H 119/83 100 06/16/19 08:00 06/16/19 08:09 06/16/19 08:20 06/16/19 08:20 06/16/19 08:20 Intake & Output 06/15/19 06/16/19 06/17/19 06:59 06:59 06:59 Intake Total 2943.2 3791.2 52 Output Total 835 1680 75 Balance 2108.2 2111.2 -23 Weight 61.9 kg 66.2 kg Weight/Height Weight 66.2 kg Height 5 ft 11 in General appearance: PRESENT: thin Exam: Sedated Head exam: PRESENT: atraumatic, normocephalic Eye exam: PRESENT: conjunctiva pink, EOMI, PERRLA. ABSENT: scleral icterus Ear exam: PRESENT: normal external ear exam Mouth exam: PRESENT: moist, tongue midline, other - ETT and OG Respiratory exam: PRESENT: crackles, decreased breath sounds, rhonchi, other - Much alanis secretions. Cardiovascular exam: PRESENT: tachycardia Pulses: PRESENT: normal dorsalis pedis pul Vascular exam: PRESENT: normal capillary refill GI/Abdominal exam: PRESENT: normal bowel sounds, soft. ABSENT: distended, guarding, mass, organolmegaly, rebound, tenderness Rectal exam: PRESENT: deferred Extremities exam: PRESENT: full ROM. ABSENT: calf tenderness, clubbing, pedal edema Musculoskeletal exam: PRESENT: normal inspection Neurological exam: PRESENT: altered Skin exam: PRESENT: dry, intact, warm. ABSENT: cyanosis, rash Tubes/Lines: PRESENT: Endotracheal Tube, Nasogastic Tube Laboratory/Radiographs Laboratory Results: 06/16/19 07:08 06/16/19 04:14 06/16/19 06/16/19 06/16/19 04:14 04:14 07:08 WBC Cancelled Cancelled RBC Cancelled Cancelled Hgb Cancelled Cancelled Hct Cancelled Cancelled MCV Cancelled Cancelled MCH Cancelled Cancelled MCHC Cancelled Cancelled RDW Cancelled Cancelled Plt Count Cancelled Cancelled Sodium 138.8 Potassium 3.0 L* Chloride 103 Carbon Dioxide 29 Anion Gap 7 BUN 6 L Creatinine 0.56 Est GFR ( Amer) > 60 Glucose 102 Calcium 8.2 L Magnesium 1.7 06/12/19 16:36 Blood Blood Culture - Final Streptococcus Pneumoniae 06/12/19 06/12/19 16:36 16:36 Creatine Kinase 256 H CK-MB (CK-2) 3.16 Troponin I < 0.012 Impressions: Lung Scan-VQ NM 06/12/19 00:00 IMPRESSION: Large matching defect in the right upper lobe consistent with abnormal chest x-ray which demonstrated large consolidation. Low probability of pulmonary embolism. Chest X-Ray 06/14/19 00:00 IMPRESSION: Persistent dense consolidation in the right upper lobe and superior segment right lower lobe likely aspiration pneumonia. No pulmonary edema, pleural effusion or pneumothorax Endotracheal tube, nasogastric tube in good positioning All labs, radiographs, diagnostic studies and EKGs were personally reviewed: Yes In addition, reports of radiographic and diagnostic studies were read: Yes Assessment and Plan - Diagnosis (1) Acute kidney injury Is this a current diagnosis for this admission?: Yes Plan: GFR > 60. Resolved (2) Alcohol dependence Qualifiers: Substance use status: in withdrawal Complication of substance-induced condition: with delirium Qualified Code(s): F10.231 - Alcohol dependence with withdrawal delirium Is this a current diagnosis for this admission?: Yes Plan: Still getting intermittently agitated. Needs versed. When more weanable will decrease versed (3) Hypokalemia Is this a current diagnosis for this admission?: Yes Plan: K level back to 3.0. No ectopy. Indicative of total body depletion and relative hypomagnesemia. (4) Hypomagnesemia Is this a current diagnosis for this admission?: Yes Plan: Trending down to level of 1.7. Add 2 more grams IV today. (5) Pneumonia Qualifiers: Pneumonia type: due to Pneumococcus Laterality: right Lung location: middle lobe of lung Qualified Code(s): J13 - Pneumonia due to Streptococcus pneumoniae Is this a current diagnosis for this admission?: Yes Plan: Secretions still large. This will be a limiting factor. Culture strep pneumo sen to rocephin in blood. resumed in sputum. (6) Nutrition deficiency due to insufficient food Is this a current diagnosis for this admission?: Yes Plan: Starting TF with Jevity 1.5 today. Plan Summary: Try vent weaning and start TF. Critical Time Critical Time (minutes): 35 Level of Care: ICU Anticipated discharge: SNF Within: Other -: 1. The care of a critical patient is a dynamic process. This note is a repr esentative synopsis but static in nature. The timeframe for treatments given in order is not necessary the actual time these treatments may have been done. 2. This patient requires critical care secondary to ongoing requirements for therapy not offered or safe outside the critical care environment. Transfer to a lower level of care with altered life or limb morbidity and mortality. 3. Multidisciplinary rounds completed. 4. ABCDE bundle addressed.
[2019-06-16 09:02] LABS: PLATELET COUNT 259 10^3/uL (150-450); WHITE BLOOD COUNT 16.4 10^3/uL (4.0-10.5)
[2019-06-16] MEDS: MAGNESIUM SULFATE/D5W 1 GM/100 ML RTUPB IV SCH ×2 (09:37→10:46)
[2019-06-16] MEDS: MULTIVITAMINS W-IRON TABLET, CHEWABLE NG SCH (09:38)
[2019-06-16] MEDS: NICOTINE 21 MG/24 HR PATCH.TD24 TD SCH (09:38)
[2019-06-16] MEDS: AMLODIPINE BESYLATE 5 MG TABLET NG SCH (09:38)
[2019-06-16] MEDS: THIAMINE HCL 100 MG, FOLIC ACID 1 MG in NORMAL SALINE 250 ML IV SCH (10:39)
[2019-06-16] MEDS: CEFTRIAXONE 1 GM/D5W RTU 1 GM/50 ML RTUPB IV SCH (17:23)
[2019-06-16 21:12] LABS: POTASSIUM 4.2 mmol/L (3.6-5.0)
[2019-06-16] MEDS: FAMOTIDINE 20 MG TABLET NG SCH (21:18)
[2019-06-16] MEDS: ATENOLOL 50 MG TABLET NG SCH (21:20)
[2019-06-17] MEDS: IPRATROPIUM/ALBUTEROL 0.5-2.5 MG/3 ML AMPUL NEB SCH ×4 (02:26→19:27)
[2019-06-17] MEDS: PROPOFOL 1,000 MG/100 ML INFUS..BTL IV PRN ×4 (02:47→21:59)
[2019-06-17 04:21] LABS: HEMATOCRIT 30.3 % (37.9-51.0); HEMOGLOBIN 9.8 g/dL (13.5-17.0); MEAN CORPUSCULAR HEMOGLOBIN 25.8 pg (27.0-33.4); MEAN CORPUSCULAR HGB CONC 32.2 g/dL (32.0-36.0); MEAN CORPUSCULAR VOLUME 80 fl (80-97); PLATELET COUNT 423 10^3/uL (150-450); RED BLOOD COUNT 3.78 10^6/uL (4.35-5.55); RED CELL DISTRIBUTION WIDTH 18.4 % (11.5-14.0); WHITE BLOOD COUNT 16.2 10^3/uL (4.0-10.5)
[2019-06-17 04:30] LABS: ANION GAP 5 (5-19); BLOOD UREA NITROGEN 5 mg/dL (7-20); CALCIUM 8.4 mg/dL (8.4-10.2); CARBON DIOXIDE 27 mmol/L (22-30); CHLORIDE 105 mmol/L (98-107); GLUCOSE 153 mg/dL (75-110); POTASSIUM 3.9 mmol/L (3.6-5.0)
[2019-06-17 04:44] LABS: ABSOLUTE LYMPHOCYTES# (MANUAL) 4.4 10^3/uL (0.5-4.7); ABSOLUTE MONOCYTES # (MANUAL) 1.1 10^3/uL (0.1-1.4); BAND NEUTROPHILS % (MANUAL) 8 % (3-5); BASOPHILS % (MANUAL) 0 % (0-2); EOSINOPHILS % (MANUAL) 0 % (0-6); LYMPHOCYTES % (MANUAL) 27 % (13-45); MONOCYTES % (MANUAL) 7 % (3-13); MYELOCYTES % (MANUAL) 1 % (0); SEGMENTED NEUTROPHILS % (MAN) 57 % (42-78); TOTAL CELLS COUNTED 100
[2019-06-17 04:46] LABS: ANISOCYTOSIS 2+; HYPOCHROMASIA 1+; PLATELET COMMENT ADEQUATE; POLYCHROMASIA 2+; TARGET CELLS SLIGHT
[2019-06-17 05:20] LABS: ARTERIAL BLOOD BASE EXCESS 2.2 mmol/L; ARTERIAL BLOOD H2CO3 1.26 mmol/L (1.05-1.35); ARTERIAL BLOOD HCO3 26.8 mmol/L (20-24); ARTERIAL BLOOD O2 SATURATION 96.9 % (94-98); ARTERIAL BLOOD PCO2 41.9 mmHg (35-45); ARTERIAL BLOOD PH 7.42 (7.35-7.45); ARTERIAL BLOOD PO2 88.2 mmHg (80-100); ARTERIAL BLOOD TOTAL CO2 28.1 mmol/L (23-27)
[2019-06-17 05:21] LABS: ARTERIAL BLOOD FIO2 30%
[2019-06-17] MEDS: NORMAL SALINE 1000 ML 1,000 ML IV PRN ×3 (05:26→21:59)
[2019-06-17] MEDS: MIDAZOLAM HCL 50 MG/100 ML RTUINJ IV PRN (06:03)
--- NOTE | 2019-06-17 07:54 | PDOC CRITICAL CARE PROG REPORT ---
General Date:: 06/17/19 ICU Day:: 4 Ventilator Day:: 4 Hospital Day:: 6 Events in the past 12 to 24 Hours:: Stable on CPAP. Less secretions. Review of systems relevant to events:: Respiratory, neuro. Reason for ICU Addmission:: Alcohol withdrawal, acute respiratory failure with increased WOB not hypoxia or hypercarbia - Medications: Medications reviewed and adjusted accordingly: Yes Vasopressors:: None Sedation:: Diprivan and versed. Physical Exam Vital Signs: Temp Pulse Resp BP Pulse Ox 98.6 F 88 23 H 101/71 100 06/17/19 05:45 06/17/19 02:25 06/17/19 07:06 06/17/19 07:06 06/17/19 07:06 Intake & Output 06/16/19 06/17/19 06/18/19 06:59 06:59 06:59 Intake Total 3791.2 4337 Output Total 1680 1250 Balance 2111.2 3087 Weight 66.2 kg 67.7 kg Weight/Height Weight 67.7 kg Height 5 ft 11 in General appearance: PRESENT: no acute distress, thin Head exam: PRESENT: atraumatic, normocephalic Eye exam: PRESENT: PERRLA Ear exam: PRESENT: normal external ear exam Mouth exam: PRESENT: moist, tongue midline Respiratory exam: PRESENT: clear to auscultation daniel, decreased breath sounds, unlabored Cardiovascular exam: PRESENT: RRR, tachycardia. ABSENT: diastolic murmur, rubs, systolic murmur Vascular exam: PRESENT: normal capillary refill GI/Abdominal exam: PRESENT: normal bowel sounds, soft. ABSENT: distended, guarding, mass, organolmegaly, rebound, tenderness Rectal exam: PRESENT: deferred Gentrourinary exam: PRESENT: indwelling catheter Extremities exam: PRESENT: full ROM. ABSENT: calf tenderness, clubbing, pedal edema Neurological exam: PRESENT: altered Skin exam: PRESENT: dry, intact, warm. ABSENT: cyanosis, rash Laboratory/Radiographs Laboratory Results: 06/17/19 03:51 06/17/19 03:51 06/16/19 06/16/19 06/16/19 07:08 08:50 20:34 WBC Cancelled 16.4 H D RBC Cancelled 3.95 L Hgb Cancelled 10.2 L Hct Cancelled 31.7 L MCV Cancelled 80 MCH Cancelled 25.8 L MCHC Cancelled 32.1 RDW Cancelled 18.6 H Plt Count Cancelled 259 D Seg Neutrophils % Carbonic Acid HCO3/H2CO3 Ratio ABG pH ABG pCO2 ABG pO2 ABG HCO3 ABG O2 Saturation ABG Base Excess FiO2 Sodium Potassium 4.2 D Chloride Carbon Dioxide Anion Gap BUN Creatinine Est GFR ( Amer) Glucose Calcium Magnesium 2.1 06/17/19 06/17/19 06/17/19 03:51 03:51 05:11 WBC 16.2 H RBC 3.78 L Hgb 9.8 L Hct 30.3 L MCV 80 MCH 25.8 L MCHC 32.2 RDW 18.4 H Plt Count 423 Seg Neutrophils % Not Reportable Carbonic Acid 1.26 HCO3/H2CO3 Ratio 21:1 ABG pH 7.42 ABG pCO2 41.9 ABG pO2 88.2 ABG HCO3 26.8 H ABG O2 Saturation 96.9 ABG Base Excess 2.2 FiO2 30% Sodium 136.8 L Potassium 3.9 Chloride 105 Carbon Dioxide 27 Anion Gap 5 BUN 5 L Creatinine 0.40 L Est GFR ( Amer) > 60 Glucose 153 H Calcium 8.4 Magnesium 2.1 06/12/19 23:59 Sputum Gram Stain - Final 06/12/19 23:59 Sputum Sputum Culture - Final Streptococcus Pneumoniae Reduced Normal Susan 06/12/19 16:36 Blood Blood Culture - Final Streptococcus Pneumoniae 06/14/19 16:46 Tracheal Aspirate Gram Stain - Final 06/14/19 16:46 Tracheal Aspirate Sputum Culture - Final NO GROWTH 2 DAYS 06/12/19 06/12/19 16:36 16:36 Creatine Kinase 256 H CK-MB (CK-2) 3.16 Troponin I < 0.012 Impressions: Lung Scan-VQ NM 06/12/19 00:00 IMPRESSION: Large matching defect in the right upper lobe consistent with abnormal chest x-ray which demonstrated large consolidation. Low probability of pulmonary embolism. All labs, radiographs, diagnostic studies and EKGs were personally reviewed: Yes In addition, reports of radiographic and diagnostic studies were read: Yes Assessment and Plan - Diagnosis (1) Alcohol dependence Qualifiers: Substance use status: in withdrawal Complication of substance-induced condition: with delirium Qualified Code(s): F10.231 - Alcohol dependence with withdrawal delirium Is this a current diagnosis for this admission?: Yes Plan: Will lighten sedation and work towards extubation. (2) Hypokalemia Is this a current diagnosis for this admission?: Yes Plan: Still mild but with a level of 3.5. (3) Hypomagnesemia Is this a current diagnosis for this admission?: Yes Plan: Resolved (4) Pneumonia Qualifiers: Pneumonia type: due to Pneumococcus Laterality: right Lung location: middle lobe of lung Qualified Code(s): J13 - Pneumonia due to Streptococcus pneumoniae Is this a current diagnosis for this admission?: Yes Plan: No positive cultures and secretions much less since yesterday. (5) Nutrition deficiency due to insufficient food Is this a current diagnosis for this admission?: Yes Plan: Now on vital for TF. Plan Summary: Lessen versed and then decrease diprivan. Critical Time Critical Time (minutes): 35 Level of Care: ICU Anticipated discharge: SNF Within: Other - Too early to speculate. -: 1. The care of a critical patient is a dynamic process. This note is a sales representative education courses synopsis but static in nature. The timeframe for treatments given in order is not necessary the actual time these treatments may have been done. 2. This patient requires critical care secondary to ongoing requirements for t herapy not offered or safe outside the critical care environment. Transfer to a lower level of care with altered life or limb morbidity and mortality. 3. Multidisciplinary rounds completed. 4. ABCDE bundle addressed.
[2019-06-17] MEDS: ACETYLCYSTEINE 20% SOLN 800 MG/4 ML VIAL.NEB NEB SCH ×2 (08:32→19:27)
[2019-06-17] MEDS: POTASSIUM CHLORIDE 20 MEQ PACKET NG SCH ×2 (10:46→18:05)
[2019-06-17] MEDS: MULTIVITAMINS W-IRON TABLET, CHEWABLE NG SCH (10:46)
[2019-06-17] MEDS: AMLODIPINE BESYLATE 5 MG TABLET NG SCH (10:46)
[2019-06-17] MEDS: THIAMINE HCL 100 MG, FOLIC ACID 1 MG in NORMAL SALINE 250 ML IV SCH (10:50)
[2019-06-17] MEDS: NICOTINE 21 MG/24 HR PATCH.TD24 TD SCH (10:51)
--- NOTE | 2019-06-17 12:31 | RADIOLOGY REPORT (SQ) ---
EXAM DESCRIPTION: CHEST SINGLE VIEW COMPLETED DATE/TIME: 06/17/2019 6:01 am REASON FOR STUDY: hypoxemia, failure to wean, respiratory failure COMPARISON: 06/14/2019. EXAM PARAMETERS: NUMBER OF VIEWS: One view. TECHNIQUE: Single frontal radiographic view of the chest acquired. RADIATION DOSE: NA LIMITATIONS: None. FINDINGS: LUNGS AND PLEURA: Persistent dense infiltrate in the right lung. Slight improved aeration . Left lung clear. No pleural effusion. No pneumothorax. MEDIASTINUM AND HILAR STRUCTURES: No masses. Contour normal. HEART AND VASCULAR STRUCTURES: Heart normal in size. Normal vasculature. BONES: No acute findings. HARDWARE: Stable endotracheal tube and nasogastric tube. OTHER: No other significant finding. IMPRESSION: PERSISTENT INFILTRATE IN THE RIGHT LUNG. SLIGHT IMPROVEMENT. TECHNICAL DOCUMENTATION: JOB ID: [id number] [employer]- All Rights Reserved Reading location - IP/workstation name: [email or web address]
[2019-06-17] MEDS: CEFTRIAXONE 1 GM/D5W RTU 1 GM/50 ML RTUPB IV SCH (18:04)
[2019-06-17] MEDS ORDERED: DEXMEDETOMIDINE IN 0.9 % NACL 400 MCG/100 ML RTUPB IV ONE (20:58)
[2019-06-17] MEDS: DEXMEDETOMIDINE IN 0.9 % NACL 400 MCG/100 ML RTUPB IV PRN (21:22)
[2019-06-17] MEDS: ATENOLOL 50 MG TABLET NG SCH (21:39)
[2019-06-17] MEDS: FAMOTIDINE 20 MG TABLET NG SCH (21:58)
[2019-06-18] MEDS: IPRATROPIUM/ALBUTEROL 0.5-2.5 MG/3 ML AMPUL NEB SCH ×4 (02:17→20:29)
[2019-06-18] MEDS: DEXMEDETOMIDINE IN 0.9 % NACL 400 MCG/100 ML RTUPB IV PRN (04:41)
[2019-06-18 06:27] LABS: ANION GAP 6 (5-19); BLOOD UREA NITROGEN 5 mg/dL (7-20); CALCIUM 8.9 mg/dL (8.4-10.2); CARBON DIOXIDE 29 mmol/L (22-30); CHLORIDE 104 mmol/L (98-107); GLUCOSE 118 mg/dL (75-110); POTASSIUM 4.3 mmol/L (3.6-5.0)
[2019-06-18] MEDS: NORMAL SALINE 1000 ML 1,000 ML IV PRN (07:00)
[2019-06-18] MEDS: ACETYLCYSTEINE 20% SOLN 800 MG/4 ML VIAL.NEB NEB SCH ×2 (07:42→20:29)
--- NOTE | 2019-06-18 08:43 | PDOC CRITICAL CARE PROG REPORT ---
General Date:: 06/18/19 ICU Day:: 5 Hospital Day:: 5 Events in the past 12 to 24 Hours:: Extubated Review of systems relevant to events:: Neuro, respiratory Reason for ICU Addmission:: Alcohol withdrawal, acute respiratory failure with increased WOB not hypoxia or hypercarbia - Medications: Medications reviewed and adjusted accordingly: Yes Vasopressors:: None Sedation:: None Physical Exam Vital Signs: Temp Pulse Resp BP Pulse Ox 99.4 F 91 38 H 160/94 H 98 06/18/19 07:44 06/18/19 08:01 06/18/19 08:06 06/18/19 08:06 06/18/19 08:06 Intake & Output 06/17/19 06/18/19 06/19/19 06:59 06:59 06:59 Intake Total 4337 4262.4 Output Total 1250 4020 300 Balance 3087 242.4 -300 Weight 67.7 kg 68.5 kg Weight/Height Weight 68.5 kg Height 5 ft 11 in General appearance: PRESENT: no acute distress, thin Head exam: PRESENT: atraumatic, normocephalic Eye exam: PRESENT: conjunctiva pink, EOMI, PERRLA. ABSENT: scleral icterus Ear exam: PRESENT: normal external ear exam Mouth exam: PRESENT: moist, tongue midline Neck exam: ABSENT: carotid bruit, JVD, lymphadenopathy, thyromegaly Respiratory exam: PRESENT: decreased breath sounds, rhonchi, other - Exhibiting Chayne-Tong breathing pattern as he did before, and during intubation. Cardiovascular exam: PRESENT: RRR. ABSENT: diastolic murmur, rubs, systolic murmur Pulses: PRESENT: normal dorsalis pedis pul Rectal exam: PRESENT: deferred Gentrourinary exam: PRESENT: indwelling catheter Extremities exam: PRESENT: full ROM. ABSENT: calf tenderness, clubbing, pedal edema Musculoskeletal exam: PRESENT: normal inspection Neurological exam: PRESENT: altered Psychiatric exam: PRESENT: agitated - At times. Skin exam: PRESENT: dry, intact, warm. ABSENT: cyanosis, rash Tubes/Lines: PRESENT: Nasogastic Tube Laboratory/Radiographs Laboratory Results: 06/17/19 03:51 06/18/19 05:20 06/18/19 05:20 Sodium 139.3 Potassium 4.3 Chloride 104 Carbon Dioxide 29 Anion Gap 6 BUN 5 L Creatinine 0.40 L Est GFR ( Amer) > 60 Glucose 118 H Calcium 8.9 06/12/19 20:25 Blood Blood Culture - Final NO GROWTH IN 5 DAYS 06/12/19 23:59 Sputum Gram Stain - Final 06/12/19 23:59 Sputum Sputum Culture - Final Streptococcus Pneumoniae Reduced Normal Susan 06/12/19 06/12/19 16:36 16:36 Creatine Kinase 256 H CK-MB (CK-2) 3.16 Troponin I < 0.012 Impressions: Lung Scan-VQ NM 06/12/19 00:00 IMPRESSION: Large matching defect in the right upper lobe consistent with abnormal chest x-ray which demonstrated large consolidation. Low probability of pulmonary embolism. Chest X-Ray 06/17/19 06:00 IMPRESSION: PERSISTENT INFILTRATE IN THE RIGHT LUNG. SLIGHT IMPROVEMENT. All labs, radiographs, diagnostic studies and EKGs were personally reviewed: Yes In addition, reports of radiographic and diagnostic studies were read: Yes Assessment and Plan - Diagnosis (1) Alcohol dependence Qualifiers: Substance use status: in withdrawal Complication of substance-induced condition: with delirium Qualified Code(s): F10.231 - Alcohol dependence with withdrawal delirium Is this a current diagnosis for this admission?: Yes Plan: Now that he is extubated and off sedation we will have a chance to asses his mental status better. There are no lateralizing signs. It is possible his illness is responsible for the breathing pattern. (2) Hypokalemia Is this a current diagnosis for this admission?: Yes Plan: Resolved (3) Hypomagnesemia Is this a current diagnosis for this admission?: Yes Plan: Resolved (4) Pneumonia Qualifiers: Pneumonia type: due to Pneumococcus Laterality: right Lung location: middle lobe of lung Qualified Code(s): J13 - Pneumonia due to Streptococcus pneumoniae Is this a current diagnosis for this admission?: Yes Plan: Inproved. On abx for 5 days total (5) Nutrition deficiency due to insufficient food Is this a current diagnosis for this admission?: Yes Plan: Continue TF. (6) Physical deconditioning Is this a current diagnosis for this admission?: Yes Plan: Will need PT when appropriate and likely placement Plan Summary: Try to keep off mind altering drugs. Mobilize as tolerated. Hoped to downgrade soon. Critical Time Critical Time (minutes): 35 Level of Care: ICU Anticipated discharge: SNF Within: Other - Too soon to speculate. -: 1. The care of a critical patient is a dynamic process. This note is a surgical device sales representative synopsis but static in nature. The timeframe for treatments given in order is not necessary the actual time these treatments may have been d one. 2. This patient requires critical care secondary to ongoing requirements for therapy not offered or safe outside the critical care environment. Transfer to a lower level of care with altered life or limb morbidity and mortality. 3. Multidisciplinary rounds completed. 4. ABCDE bundle addressed.
[2019-06-18] MEDS: AMLODIPINE BESYLATE 5 MG TABLET NG SCH (09:36)
[2019-06-18] MEDS: NICOTINE 21 MG/24 HR PATCH.TD24 TD SCH (09:36)
[2019-06-18] MEDS: THIAMINE HCL 100 MG, FOLIC ACID 1 MG in NORMAL SALINE 250 ML IV SCH (09:36)
[2019-06-18] MEDS: MULTIVITAMINS W-IRON TABLET, CHEWABLE NG SCH (09:36)
[2019-06-18] MEDS: POTASSIUM CHLORIDE 20 MEQ PACKET NG SCH ×2 (09:36→17:47)
[2019-06-18] MEDS: METOPROLOL TARTRATE 25 MG TABLET PO SCH (17:47)
[2019-06-18] MEDS: CEFTRIAXONE 1 GM/D5W RTU 1 GM/50 ML RTUPB IV SCH (17:47)
[2019-06-18] MEDS: FAMOTIDINE 20 MG TABLET NG SCH (21:25)
[2019-06-18] MEDS: LORAZEPAM 0.5 MG TABLET PO SCH (23:56)
[2019-06-19] MEDS: IPRATROPIUM/ALBUTEROL 0.5-2.5 MG/3 ML AMPUL NEB SCH ×3 (02:05→14:14)
[2019-06-19 04:37] LABS: HEMATOCRIT 32.2 % (37.9-51.0); HEMOGLOBIN 10.6 g/dL (13.5-17.0); MEAN CORPUSCULAR VOLUME 79 fl (80-97); PLATELET COUNT 633 10^3/uL (150-450); RED BLOOD COUNT 4.09 10^6/uL (4.35-5.55); RED CELL DISTRIBUTION WIDTH 18.3 % (11.5-14.0); WHITE BLOOD COUNT 21.8 10^3/uL (4.0-10.5)
[2019-06-19 04:51] LABS: ANION GAP 9 (5-19); BLOOD UREA NITROGEN 6 mg/dL (7-20); CALCIUM 9.5 mg/dL (8.4-10.2); CARBON DIOXIDE 29 mmol/L (22-30); CHLORIDE 97 mmol/L (98-107); GLUCOSE 96 mg/dL (75-110); POTASSIUM 4.1 mmol/L (3.6-5.0)
[2019-06-19] MEDS: LORAZEPAM 0.5 MG TABLET PO SCH (05:56)
[2019-06-19] MEDS: METOPROLOL TARTRATE 25 MG TABLET PO SCH ×2 (05:57→18:02)
[2019-06-19] MEDS: ACETYLCYSTEINE 20% SOLN 800 MG/4 ML VIAL.NEB NEB SCH (08:08)
[2019-06-19] MEDS: POTASSIUM CHLORIDE 20 MEQ PACKET NG SCH ×2 (10:06→18:02)
[2019-06-19] MEDS: AMLODIPINE BESYLATE 5 MG TABLET NG SCH (10:09)
[2019-06-19] MEDS: MULTIVITAMINS W-IRON TABLET, CHEWABLE NG SCH (10:09)
[2019-06-19] MEDS: NICOTINE 21 MG/24 HR PATCH.TD24 TD SCH (10:33)
[2019-06-19] MEDS: FOLIC ACID 1 MG TABLET PO SCH ×2 (10:40→23:06)
[2019-06-19] MEDS ORDERED: LORAZEPAM 0.5 MG TABLET PO PRN (10:40)
[2019-06-19] MEDS: THIAMINE HCL 500 MG in NORMAL SALINE 250 ML IV SCH ×2 (10:41→23:06)
--- NOTE | 2019-06-19 10:44 | PDOC CRITICAL CARE PROG REPORT ---
General Date:: 06/19/19 ICU Day:: 6 Hospital Day:: 8 Events in the past 12 to 24 Hours:: No seizures or hemodynamic instability. Feels weak but no chest pain or fever. Tolerating liquid diet. Extubated successfully on 08.19.18 Review of systems relevant to events:: WBC elevated without etiology. No steroids. No hypoxia. No respiratory distress. Has had increase UOP but IVF at 125 cc/hr. Reason for ICU Addmission:: Alcohol withdrawal, acute respiratory failure with increased WOB not hypoxia or hypercarbia - Medications: Medications reviewed and adjusted accordingly: Yes Vasopressors:: None Sedation:: CIWA with prn Ativan Physical Exam Vital Signs: Temp Pulse Resp BP Pulse Ox 98.7 F 88 22 H 147/90 H 100 06/19/19 04:00 06/19/19 08:10 06/19/19 08:10 06/19/19 06:07 06/19/19 08:10 Intake & Output 06/18/19 06/19/19 06/20/19 06:59 06:59 06:59 Intake Total 5262.4 1355.2 Output Total 4020 6865 250 Balance 1242.4 -5509.8 -250 Weight 68.5 kg 64.9 kg Weight/Height Weight 64.9 kg Height 5 ft 11 in General appearance: PRESENT: no acute distress, cooperative, well-developed, well-nourished Exam: Nontoxic older appearing 58-year-old black male no acute distress. Awake alert oriented x3 Head exam: PRESENT: atraumatic, normocephalic Eye exam: PRESENT: conjunctiva pink, EOMI, PERRLA. ABSENT: conjunctival injection, nystagmus, scleral icterus Ear exam: PRESENT: normal external ear exam Mouth exam: PRESENT: dry mucosa, neck supple Teeth exam: PRESENT: poor dentation Neck exam: ABSENT: carotid bruit, JVD, lymphadenopathy, thyromegaly Respiratory exam: PRESENT: clear to auscultation daniel, unlabored. ABSENT: rales, rhonchi, tachypnea, wheezes Cardiovascular exam: PRESENT: RRR. ABSENT: diastolic murmur, rubs, systolic murmur Pulses: PRESENT: +2 pedal pulses bilateral Vascular exam: PRESENT: normal capillary refill. ABSENT: pallor GI/Abdominal exam: PRESENT: normal bowel sounds, soft. ABSENT: ascites, distended, firm, guarding, mass, organolmegaly, rebound, tenderness Rectal exam: PRESENT: deferred Gentrourinary exam: PRESENT: indwelling catheter Extremities exam: ABSENT: pedal edema, tenderness Musculoskeletal exam: ABSENT: deformity, dislocation Neurological exam: PRESENT: alert, awake, oriented to person, oriented to place, oriented to time, CN II-XII grossly intact, other - No tremor or asterixis. ABSENT: motor sensory deficit, aphasic Psychiatric exam: PRESENT: flat affect, normal mood Focused psych exam: ABSENT: pressured speech, psychomotor agitation, restlessness Skin exam: PRESENT: dry, intact, normal color. ABSENT: erythema, mottled, pa llor, petechiae, rash, urticaria, vesicles Tubes/Lines: PRESENT: Other - Pollack catheter present. To be removed today. ABSENT: Endotracheal Tube, Chest Tube, Central Line, Arterial Catheter, Dialysis catheter, Peg Tube, Nasogastic Tube Laboratory/Radiographs Laboratory Results: 06/19/19 04:20 06/19/19 04:20 06/19/19 06/19/19 04:20 04:20 WBC 21.8 H RBC 4.09 L Hgb 10.6 L Hct 32.2 L MCV 79 L MCH 26.0 L MCHC 33.0 RDW 18.3 H Plt Count 633 H Sodium 134.5 L Potassium 4.1 Chloride 97 L Carbon Dioxide 29 Anion Gap 9 BUN 6 L Creatinine 0.48 L Est GFR ( Amer) > 60 Glucose 96 Calcium 9.5 06/12/19 06/12/19 16:36 16:36 Creatine Kinase 256 H CK-MB (CK-2) 3.16 Troponin I < 0.012 Impressions: Lung Scan-VQ NM 06/12/19 00:00 IMPRESSION: Large matching defect in the right upper lobe consistent with abnormal chest x-ray which demonstrated large consolidation. Low probability of pulmonary embolism. Chest X-Ray 06/17/19 06:00 IMPRESSION: PERSISTENT INFILTRATE IN THE RIGHT LUNG. SLIGHT IMPROVEMENT. All labs, radiographs, diagnostic studies and EKGs were personally reviewed: Yes In addition, reports of radiographic and diagnostic studies were read: Yes Assessment and Plan - Diagnosis (1) Acute aspiration pneumonia Is this a current diagnosis for this admission?: Yes (2) Encephalopathy, metabolic Is this a current diagnosis for this admission?: Yes (3) Delirium, withdrawal, alcoholic Is this a current diagnosis for this admission?: Yes (4) Anatomic airway obstruction Is this a current diagnosis for this admission?: Yes Plan Summary: 06.19.19: Will start the patient on physical therapy. To new to monitor for alcohol withdrawal. He currently has no evidence to support this. Have changed his Ativan to as needed. Will increase his diet to full Have increased his thiamine to 500 every 12 and his Folate to 2 mg a day. Discontinue Pollack catheter. Discontinue IV fluids. Continue to monitor urine output after catheter is removed Continue supportive care Follow white blood cell count. Downgrade today 06.18.2019: (Dr. Lopez)Try to keep off mind altering drugs. Mobilize as tolerated. Hoped to downgrade soon. Critical Time Critical Time (minutes): 0 - [id number] Level of Care: MEDICAL Within: within 48 hours -: 1. The care of a critical patient is a dynamic process. This note is a technical sales representatives synopsis but static in nature. The timeframe for treatments given in order is not necessary the actual time these treatments may have been done. 2. This patient requires critical care secondary to ongoing requirements for th erapy not offered or safe outside the critical care environment. Transfer to a lower level of care with altered life or limb morbidity and mortality. 3. Multidisciplinary rounds completed. 4. ABCDE bundle addressed. 5. MPOA: Patienceer Sidney
[2019-06-19 15:29] LABS: INTERNATIONAL RATION (INR) 1.19; PROTHROMBIN TIME 15.2 SEC (11.4-15.4)
[2019-06-19 15:30] LABS: FIBRINOGEN 896 mg/dL (209-497); PARTIAL THROMBOPLASTIN TIME 35.6 SEC (23.5-35.8)
[2019-06-19] MEDS: CEFTRIAXONE 1 GM/D5W RTU 1 GM/50 ML RTUPB IV SCH (18:05)
[2019-06-19] MEDS: ENOXAPARIN SODIUM INJ 40 MG/0.4 ML DISP.SYRIN SUBCUT SCH (23:06)
[2019-06-20 01:42] LABS: APPEARANCE,URINE CLEAR; BILIRUBIN,URINE NEGATIVE (NEGATIVE); COLOR,URINE STRAW; GLUCOSE, URINE NEGATIVE (NEGATIVE); KETONES,URINE NEGATIVE (NEGATIVE); LEUKOCYTE ESTERASE,URINE NEGATIVE (NEGATIVE); NITRITE,URINE NEGATIVE (NEGATIVE); PROTEIN,URINE NEGATIVE (NEGATIVE); URINE SPECIFIC GRAVITY 1.006; UROBILINOGEN,URINE NEGATIVE mg/dL (<2.0)
[2019-06-20] MEDS: METOPROLOL TARTRATE 25 MG TABLET PO SCH ×2 (05:11→17:05)
[2019-06-20 06:23] LABS: HEMATOCRIT 33.8 % (37.9-51.0); HEMOGLOBIN 11.2 g/dL (13.5-17.0); MEAN CORPUSCULAR HGB CONC 33.1 g/dL (32.0-36.0); MEAN CORPUSCULAR VOLUME 79 fl (80-97); PLATELET COUNT 695 10^3/uL (150-450); RED CELL DISTRIBUTION WIDTH 17.9 % (11.5-14.0); WHITE BLOOD COUNT 16.3 10^3/uL (4.0-10.5)
[2019-06-20 06:42] LABS: ABSOLUTE MONOCYTES # (MANUAL) 1.1 10^3/uL (0.1-1.4); BAND NEUTROPHILS % (MANUAL) 1 % (3-5); BASOPHILS % (MANUAL) 0 % (0-2); EOSINOPHILS % (MANUAL) 1 % (0-6); LYMPHOCYTES % (MANUAL) 10 % (13-45); METAMYELOCYTES % (MANUAL) 1 % (0-1); MONOCYTES % (MANUAL) 7 % (3-13); SEGMENTED NEUTROPHILS % (MAN) 78 % (42-78); TOTAL CELLS COUNTED 100
[2019-06-20 06:43] LABS: ANISOCYTOSIS 1+; HYPOCHROMASIA SLIGHT; PLATELET COMMENT INCREASED; POLYCHROMASIA SLIGHT; TARGET CELLS 1+; TOXIC GRANULATION 1+; TOXIC VACUOLATION PRESENT
[2019-06-20 06:47] LABS: ANION GAP 10 (5-19); BLOOD UREA NITROGEN 8 mg/dL (7-20); CARBON DIOXIDE 29 mmol/L (22-30); CHLORIDE 96 mmol/L (98-107); GLUCOSE 98 mg/dL (75-110); PHOSPHORUS 4.9 mg/dL (2.5-4.5); POTASSIUM 4.3 mmol/L (3.6-5.0)
[2019-06-20] MEDS: MULTIVITAMINS W-IRON TABLET, CHEWABLE NG SCH (09:22)
[2019-06-20] MEDS: AMLODIPINE BESYLATE 5 MG TABLET NG SCH (09:22)
[2019-06-20] MEDS: FOLIC ACID 1 MG TABLET PO SCH ×2 (09:22→21:02)
[2019-06-20] MEDS: NICOTINE 21 MG/24 HR PATCH.TD24 TD SCH (09:22)
[2019-06-20] MEDS: THIAMINE HCL 500 MG in NORMAL SALINE 250 ML IV SCH (09:23)
[2019-06-20] MEDS: ENOXAPARIN SODIUM INJ 40 MG/0.4 ML DISP.SYRIN SUBCUT SCH (09:24)
[2019-06-20] MEDS ORDERED: LORAZEPAM INJ 2 MG/1 ML VIAL IV PRN (12:35)
--- NOTE | 2019-06-20 12:36 | PDOC PROGRESS REPORT ---
Subjective Progress Note for:: 06/20/19 Subjective:: Mr. Valladares is a 58-year-old male with a history of hypertension, asthma, alcohol dependence, who was admitted on 06/12/2019 after presenting with cough and shortness of breath for treatment of community-acquired pneumonia. Patient was treated with ceftriaxone and azithromycin. Patient was transferred to the ICU on 06/14/2019 for treatment of delirium tremens from his alcohol withdrawal. He was given Ativan. Patient was having excessive secretions from his cough and he was later intubated. He was placed on a Precedex drip. As patient's withdrawal symptoms improved patient was later extubated and the Precedex drip was later discontinued. Patient was transferred to the floor overnight. Today patient denies any shortness of breath, chest pain fever or chills. He denies any confusion. Still admits to some cough but states is much better than before. Reason For Visit: ACUTE PNEUMONIA AND SEPSIS,SEVERE ALCOHOL Physical Exam Vital Signs: Temp Pulse Resp BP Pulse Ox 98.5 F 90 16 146/86 H 96 06/20/19 07:59 06/20/19 07:59 06/20/19 07:59 06/20/19 07:59 06/20/19 07:59 Intake & Output 06/19/19 06/20/19 06/21/19 06:59 06:59 06:59 Intake Total 1355.2 1100 Output Total 6865 2530 Balance -5509.8 -1430 Weight 64.9 kg 60.8 kg General appearance: PRESENT: no acute distress, cooperative Neck exam: ABSENT: JVD Respiratory exam: PRESENT: clear to auscultation daniel, symmetrical, unlabored. ABSENT: tachypnea, wheezes Cardiovascular exam: PRESENT: RRR, +S1, +S2. ABSENT: tachycardia GI/Abdominal exam: PRESENT: normal bowel sounds, soft. ABSENT: rebound, rigid, tenderness Extremities exam: PRESENT: other - Mild tremors noted in both upper extremities Neurological exam: PRESENT: alert, awake, oriented to person, oriented to place, oriented to time, oriented to situation Psychiatric exam: ABSENT: agitated, anxious Results Laboratory Results: 06/20/19 06:15 06/20/19 06:15 06/20/19 06/20/19 06/20/19 01:15 06:15 06:15 WBC 16.3 H RBC 4.30 L Hgb 11.2 L Hct 33.8 L MCV 79 L MCH 26.0 L MCHC 33.1 RDW 17.9 H Plt Count 695 H Seg Neutrophils % Not Reportable Sodium 134.5 L Potassium 4.3 Chloride 96 L Carbon Dioxide 29 Anion Gap 10 BUN 8 Creatinine 0.50 L Est GFR ( Amer) > 60 Glucose 98 Calcium 9.0 Phosphorus 4.9 H Magnesium 1.6 Urine Color STRAW Urine Appearance CLEAR Urine pH 8.0 Ur Specific [place] 1.006 Urine Protein NEGATIVE Urine Glucose (UA) NEGATIVE Urine Ketones NEGATIVE Urine Blood NEGATIVE Urine Nitrite NEGATIVE Ur Leukocyte Esterase NEGATIVE Urine WBC (Auto) 0 Urine RBC (Auto) 0 06/12/19 06/12/19 16:36 16:36 Creatine Kinase 256 H CK-MB (CK-2) 3.16 Troponin I < 0.012 Impressions: Lung Scan-VQ NM 06/12/19 00:00 IMPRESSION: Large matching defect in the right upper lobe consistent with abnormal chest x-ray which demonstrated large consolidation. Low probability of pulmonary embolism. Chest X-Ray 06/17/19 06:00 IMPRESSION: PERSISTENT INFILTRATE IN THE RIGHT LUNG. SLIGHT IMPROVEMENT. Assessment and Plan - Diagnosis (1) Acute aspiration pneumonia Is this a current diagnosis for this admission?: Yes Plan: Patient has currently completed 7 days of ceftriaxone on 5 days of azithromycin for treatment of streptococcal pneumonia (2) Leukocytosis Is this a current diagnosis for this admission?: Yes Plan: Leukocytosis down trended today. At this time, I will discontinue antibiotics as patient has completed treatment course of pneumonia and just continue to monitor CBC daily. (3) Delirium, withdrawal, alcoholic Is this a current diagnosis for this admission?: Yes Plan: -DT has currently resolved. Patient still has mild alcohol withdrawal with tremors. -Maintain on CIWA protocol. -No current needs for continuing Ativan but will leave it in as PRN for elevated CIWA scores. (4) Encephalopathy, metabolic Is this a current diagnosis for this admission?: Yes Plan: Mental status has improved. Fully oriented and conversational. (5) Tobacco dependence Is this a current diagnosis for this admission?: Yes Plan: Smoking cessation is encouraged. Nicotine replacement therapies are provided. - Time Time Spent with patient: 15-24 minutes
[2019-06-21 05:38] LABS: ABSOLUTE EOSINOPHILS # (AUTO) 0.1 10^3/uL (0.0-0.6); ABSOLUTE LYMPHOCYTES (AUTO) 2.1 10^3/uL (0.5-4.7); ABSOLUTE MONOCYTES (AUTO) 1.6 10^3/uL (0.1-1.4); ABSOLUTE NEUT (AUTO) 10.3 10^3/uL (1.7-8.2); BASOPHILS % (AUTO) 0.3 % (0-2); EOSINOPHILS % (AUTO) 0.4 % (0-6); HEMATOCRIT 32.2 % (37.9-51.0); HEMOGLOBIN 10.5 g/dL (13.5-17.0); MEAN CORPUSCULAR HEMOGLOBIN 25.8 pg (27.0-33.4); MEAN CORPUSCULAR HGB CONC 32.6 g/dL (32.0-36.0); MEAN CORPUSCULAR VOLUME 79 fl (80-97); MONOCYTES % (AUTO) 11.5 % (3-13); PLATELET COUNT 734 10^3/uL (150-450); RED BLOOD COUNT 4.07 10^6/uL (4.35-5.55); RED CELL DISTRIBUTION WIDTH 18.3 % (11.5-14.0); SEGMENTED NEUTROPHILS % (AUTO) 72.8 % (42-78); TOTAL CELLS COUNTED % (AUTO) 100 %; WHITE BLOOD COUNT 14.1 10^3/uL (4.0-10.5)
[2019-06-21] MEDS: METOPROLOL TARTRATE 25 MG TABLET PO SCH ×2 (05:41→17:36)
[2019-06-21 05:56] LABS: ANION GAP 10 (5-19); BLOOD UREA NITROGEN 13 mg/dL (7-20); CALCIUM 9.6 mg/dL (8.4-10.2); CARBON DIOXIDE 30 mmol/L (22-30); CHLORIDE 96 mmol/L (98-107); GLUCOSE 98 mg/dL (75-110); POTASSIUM 4.9 mmol/L (3.6-5.0)
[2019-06-21] MEDS: MULTIVITAMINS W-IRON TABLET, CHEWABLE NG SCH (09:09)
[2019-06-21] MEDS: FOLIC ACID 1 MG TABLET PO SCH ×2 (09:09→21:12)
[2019-06-21] MEDS: THIAMINE HCL 100 MG TABLET PO SCH ×2 (09:10→21:12)
[2019-06-21] MEDS: NICOTINE 21 MG/24 HR PATCH.TD24 TD SCH (09:12)
[2019-06-21] MEDS: ENOXAPARIN SODIUM INJ 40 MG/0.4 ML DISP.SYRIN SUBCUT SCH (09:13)
--- NOTE | 2019-06-21 13:14 | PDOC PROGRESS REPORT ---
Subjective Progress Note for:: 06/21/19 Subjective:: Patient is doing well. Was able to tolerate ambulation with physical therapy today. Is planning to work with physical therapy again tomorrow. Patient will like his diet to be upgraded as well. Reason For Visit: ACUTE PNEUMONIA AND SEPSIS,SEVERE ALCOHOL Physical Exam Vital Signs: Temp Pulse Resp BP Pulse Ox 98.3 F 90 20 104/55 L 96 06/21/19 08:00 06/21/19 08:00 06/21/19 08:00 06/21/19 08:00 06/21/19 08:00 Intake & Output 06/20/19 06/21/19 06/22/19 06:59 06:59 06:59 Intake Total 1100 2278 Output Total 2530 950 Balance -1430 1328 Weight 60.8 kg 63.6 kg General appearance: PRESENT: no acute distress, cooperative Neck exam: ABSENT: JVD Respiratory exam: PRESENT: clear to auscultation daniel Cardiovascular exam: PRESENT: +S1, +S2 Neurological exam: PRESENT: alert, awake, oriented to person, oriented to place, oriented to time, oriented to situation Results Laboratory Results: 06/21/19 05:07 06/21/19 05:07 06/21/19 06/21/19 05:07 05:07 WBC 14.1 H RBC 4.07 L Hgb 10.5 L Hct 32.2 L MCV 79 L MCH 25.8 L MCHC 32.6 RDW 18.3 H Plt Count 734 H Seg Neutrophils % 72.8 Sodium 135.5 L Potassium 4.9 Chloride 96 L Carbon Dioxide 30 Anion Gap 10 BUN 13 Creatinine 0.54 Est GFR ( Amer) > 60 Glucose 98 Calcium 9.6 06/12/19 06/12/19 16:36 16:36 Creatine Kinase 256 H CK-MB (CK-2) 3.16 Troponin I < 0.012 Impressions: Lung Scan-VQ NM 06/12/19 00:00 IMPRESSION: Large matching defect in the right upper lobe consistent with abnormal chest x-ray which demonstrated large consolidation. Low probability of pulmonary embolism. Chest X-Ray 06/17/19 06:00 IMPRESSION: PERSISTENT INFILTRATE IN THE RIGHT LUNG. SLIGHT IMPROVEMENT. Assessment and Plan - Diagnosis (1) Acute aspiration pneumonia Is this a current diagnosis for this admission?: Yes Plan: Patient has currently completed 7 days of ceftriaxone on 5 days of azithromycin for treatment of streptococcal pneumonia (2) Leukocytosis Is this a current diagnosis for this admission?: Yes Plan: Leukocytosis down trended today. Maintain off antibiotics and continue to monitor CBC daily. (3) Delirium, withdrawal, alcoholic Is this a current diagnosis for this admission?: Yes Plan: -DT has currently resolved patient seems to no longer being withdrawal. He is out of the active withdrawal window. We will plan towards discharge tomorrow as patient has been able to ambulate appropriately with physical therapy. (4) Encephalopathy, metabolic Is this a current diagnosis for this admission?: Yes (5) Tobacco dependence Is this a current diagnosis for this admission?: Yes Plan: Smoking cessation is encouraged. Nicotine replacement therapies are provided. - Time Time Spent with patient: Less than 15 minutes
[2019-06-21] MEDS: AMLODIPINE BESYLATE 5 MG TABLET NG SCH (14:02)
[2019-06-22 02:40] LABS: APPEARANCE,URINE CLEAR; BILIRUBIN,URINE NEGATIVE (NEGATIVE); COLOR,URINE YELLOW; GLUCOSE, URINE NEGATIVE (NEGATIVE); KETONES,URINE NEGATIVE (NEGATIVE); LEUKOCYTE ESTERASE,URINE NEGATIVE (NEGATIVE); NITRITE,URINE NEGATIVE (NEGATIVE); PROTEIN,URINE NEGATIVE (NEGATIVE); URINE SPECIFIC GRAVITY 1.012; UROBILINOGEN,URINE NEGATIVE mg/dL (<2.0)
[2019-06-22] MEDS: METOPROLOL TARTRATE 25 MG TABLET PO SCH (05:23)
[2019-06-22 07:09] LABS: ABSOLUTE BASOPHILS # (AUTO) 0.2 10^3/uL (0.0-0.2); ABSOLUTE EOSINOPHILS # (AUTO) 0.1 10^3/uL (0.0-0.6); ABSOLUTE LYMPHOCYTES (AUTO) 2.5 10^3/uL (0.5-4.7); ABSOLUTE MONOCYTES (AUTO) 1.8 10^3/uL (0.1-1.4); ABSOLUTE NEUT (AUTO) 10.2 10^3/uL (1.7-8.2); BASOPHILS % (AUTO) 1.6 % (0-2); EOSINOPHILS % (AUTO) 0.6 % (0-6); HEMATOCRIT 32.5 % (37.9-51.0); HEMOGLOBIN 10.4 g/dL (13.5-17.0); LYMPHOCYTES % (AUTO) 16.6 % (13-45); MEAN CORPUSCULAR HEMOGLOBIN 25.6 pg (27.0-33.4); MEAN CORPUSCULAR HGB CONC 32.1 g/dL (32.0-36.0); MEAN CORPUSCULAR VOLUME 80 fl (80-97); MONOCYTES % (AUTO) 12.2 % (3-13); PLATELET COUNT 643 10^3/uL (150-450); RED BLOOD COUNT 4.08 10^6/uL (4.35-5.55); RED CELL DISTRIBUTION WIDTH 18.3 % (11.5-14.0); TOTAL CELLS COUNTED % (AUTO) 100 %; WHITE BLOOD COUNT 14.8 10^3/uL (4.0-10.5)
[2019-06-22 07:23] LABS: ANION GAP 13 (5-19); BLOOD UREA NITROGEN 12 mg/dL (7-20); CALCIUM 9.5 mg/dL (8.4-10.2); CARBON DIOXIDE 26 mmol/L (22-30); CHLORIDE 97 mmol/L (98-107); GLUCOSE 128 mg/dL (75-110); POTASSIUM 4.6 mmol/L (3.6-5.0)
[2019-06-22 08:32] VITALS: BP 92/68
[2019-06-22] MEDS: MULTIVITAMINS W-IRON TABLET, CHEWABLE NG SCH (09:09)
[2019-06-22] MEDS: FOLIC ACID 1 MG TABLET PO SCH (09:09)
[2019-06-22] MEDS: THIAMINE HCL 100 MG TABLET PO SCH (09:10)
[2019-06-22] MEDS: ENOXAPARIN SODIUM INJ 40 MG/0.4 ML DISP.SYRIN SUBCUT SCH (09:11)
[2019-06-22] MEDS: NICOTINE 21 MG/24 HR PATCH.TD24 TD SCH (09:11)
[2019-06-22] MEDS: AMLODIPINE BESYLATE 5 MG TABLET NG SCH (09:13)
--- NOTE | 2019-06-22 13:07 | PDOC DISCHARGE SUMMARY ---
Impression - Admit/DC Date/PCP Admission Date/Primary Care Provider: 06/12/19 18:28 Discharge Date: 06/22/19 - Discharge Diagnosis (1) Acute aspiration pneumonia Is this a current diagnosis for this admission?: Yes (2) Leukocytosis Is this a current diagnosis for this admission?: Yes (3) Delirium, withdrawal, alcoholic Is this a current diagnosis for this admission?: Yes (4) Encephalopathy, metabolic Is this a current diagnosis for this admission?: Yes (5) Tobacco dependence Is this a current diagnosis for this admission?: Yes (6) NAVJOT (acute kidney injury) Is this a current diagnosis for this admission?: Yes (7) Elevated LFTs Is this a current diagnosis for this admission?: Yes (8) Hypokalemia Is this a current diagnosis for this admission?: Yes (9) Sepsis Is this a current diagnosis for this admission?: Yes (10) Generalized weakness Is this a current diagnosis for this admission?: Yes - Assessment Summary: 58-year-old male with a history of hypertension, asthma, alcohol dependence was admitted on 06/12/2019 after presenting with cough and shortness of breath. Chest imaging revealed evidence of aspiration pneumonia. Patient was treated with ceftriaxone and azithromycin and also started on vitamin supplements including thiamine and folic acid given his history of chronic alcohol dependence. While on the floor, patient started to go into severe alcohol withdrawal and was transferred to the ICU on 06/14/2019 for treatment of delirium tremens from his alcohol withdrawal. He was given Ativan. Patient was having excessive secretions from his cough and he was later intubated. He was placed on a Precedex drip. As patient's withdrawal symptoms improved patient was later extubated and the Precedex drip was later discontinued. Patient was transferred back to the floor. He continued to undergo physical therapy evaluation and his diet was gradually escalated. As patient's withdrawal symptoms resolved, he did not need any more Ativan as he maintained adequate CIWA scores. Patient was cleared by physical therapy and was set up for outpatient rehabilitation for his generalized weakness. Patient has been counseled to refrain from alcohol use. Patient is being discharged to complete 3 more days of Levaquin for his pneumonia. Patient is also being discharged with thiamine, folic acid and multivitamins. - Additional Information Resuscitation Status: Full Code Discharge Diet: As Tolerated Discharge Activity: Activity As Tolerated Referrals: [facility] [Outside] - 07/04/19 3:00 pm (WITH DR. BECERRIL) Prescriptions: Multivitamins W-Iron [Flintstones Chewable Multivit W/Fe Tab] 1 tab NG DAILY #30 tab.chew Folic Acid [Folvite 1 mg Tablet] 1 mg PO Q12 #60 tablet Levofloxacin [Levaquin 500 mg Tablet] 500 mg PO DAILY #3 tablet Nicotine [Nicoderm 21 mg/24 Hr Transderm Patch] 1 each TD DAILY #15 patch.td24 Thiamine HCl [Thiamine 100 mg Tablet] 100 mg PO Q12 #60 tablet Home Medications: Folic Acid [Folvite 1 mg Tablet] 1 mg PO Q12 #60 tablet 06/22/19 Levofloxacin [Levaquin 500 mg Tablet] 500 mg PO DAILY #3 tablet 06/22/19 Multivitamins W-Iron [Flintstones Chewable Multivit W/Fe Tab] 1 tab NG DAILY #30 tab.chew 06/22/19 Nicotine [Nicoderm 21 mg/24 Hr Transderm Patch] 1 each TD DAILY #15 patch.td24 06/22/19 Thiamine HCl [Thiamine 100 mg Tablet] 100 mg PO Q12 #60 tablet 06/22/19 History of Present Illiness History of Present Illness: CAMRON DANGELO is a 58 year old male with a past medical history significant for hypertension, asthma, tobacco dependency, alcohol dependency who presents to the emergency department today with a complaint of 2 to 3 days of rapidly worsening shortness of breath and productive cough. He reports generalized malaise and fatigue. Evaluation in the emergency department reveals tachycardia, tachypnea, hypoxia on room air, normal WBCs spoke with bandemia, elevated d-dimer to 3.95, hypokalemia (2.7) anion gap acidosis, NAVJOT (1.99/27), elevated LFTs, negative urinalysis, and a chest x-ray that reveals a dense right mid field consolidation. VQ scan is pending. The patient is provided 2 L of normal saline, azithromycin and Rocephin, potassium replacement, and referred to the hospitalist service for admission and management of the above-stated complaints of findings. Physical Exam Vital Signs: Temp Pulse Resp BP Pulse Ox 99.3 F 85 19 92/68 L 98 06/22/19 12:32 06/22/19 12:32 06/22/19 12:32 06/22/19 12:32 06/22/19 12:32 Intake & Output 06/21/19 06/22/19 06/23/19 06:59 06:59 06:59 Intake Total 2278 2369 Output Total 950 1100 Balance 1328 1269 Weight 63.6 kg 65.5 kg General appearance: PRESENT: no acute distress, cooperative Neck exam: ABSENT: JVD Respiratory exam: PRESENT: clear to auscultation daniel Cardiovascular exam: PRESENT: +S1, +S2 GI/Abdominal exam: PRESENT: normal bowel sounds, soft. ABSENT: tenderness Neurological exam: PRESENT: alert, awake, oriented to person, oriented to place Results Laboratory Results: WBC 14.8 10^3/uL (4.0-10.5) H 06/22/19 06:23 RBC 4.08 10^6/uL (4.35-5.55) L 06/22/19 06:23 Hgb 10.4 g/dL (13.5-17.0) L 06/22/19 06:23 Hct 32.5 % (37.9-51.0) L 06/22/19 06:23 MCV 80 fl (80-97) 06/22/19 06:23 MCH 25.6 pg (27.0-33.4) L 06/22/19 06:23 MCHC 32.1 g/dL (32.0-36.0) 06/22/19 06:23 RDW 18.3 % (11.5-14.0) H 06/22/19 06:23 Plt Count 643 10^3/uL (150-450) H 06/22/19 06:23 Lymph % (Auto) 16.6 % (13-45) 06/22/19 06:23 Leslie % (Auto) 12.2 % (3-13) 06/22/19 06:23 Eos % (Auto) 0.6 % (0-6) 06/22/19 06:23 Baso % (Auto) 1.6 % (0-2) 06/22/19 06:23 Absolute Neuts (auto) 10.2 10^3/uL (1.7-8.2) H 06/22/19 06:23 Absolute Lymphs (auto) 2.5 10^3/uL (0.5-4.7) 06/22/19 06:23 Absolute Monos (auto) 1.8 10^3/uL (0.1-1.4) H 06/22/19 06:23 Absolute Eos (auto) 0.1 10^3/uL (0.0-0.6) 06/22/19 06:23 Absolute Basos (auto) 0.2 10^3/uL (0.0-0.2) 06/22/19 06:23 Total Counted 100 06/20/19 06:15 Seg Neutrophils % 69.0 % (42-78) 06/22/19 06:23 Seg Neuts % (Manual) 78 % (42-78) 06/20/19 06:15 Band Neutrophils % 1 % (3-5) L 06/20/19 06:15 Lymphocytes % (Manual) 10 % (13-45) L 06/20/19 06:15 Atypical Lymphs % 2 % (0) 06/20/19 06:15 Monocytes % (Manual) 7 % (3-13) 06/20/19 06:15 Eosinophils % (Manual) 1 % (0-6) 06/20/19 06:15 Basophils % (Manual) 0 % (0-2) 06/20/19 06:15 Metamyelocytes % 1 % (0-1) 06/20/19 06:15 Myelocytes % 1 % (0) H 06/17/19 03:51 Abs Neuts (Manual) 13.0 10^3/uL (1.7-8.2) H 06/20/19 06:15 Abs Lymphs (Manual) 2.0 10^3/uL (0.5-4.7) 06/20/19 06:15 Abs Monocytes (Manual) 1.1 10^3/uL (0.1-1.4) 06/20/19 06:15 Absolute Eos (Manual) 0.2 10^3/uL (0.0-0.6) 06/20/19 06:15 Abs Basophils (Manual) 0.0 10^3/uL (0.0-0.2) 06/20/19 06:15 Toxic Granulation 1+ 06/20/19 06:15 Toxic Vacuolation PRESENT 06/20/19 06:15 Dohle Bodies PRESENT 06/13/19 05:20 Platelet Estimate Cancelled 06/16/19 07:08 Large Platelets PRESENT 06/12/19 16:36 Platelet Comment INCREASED 06/20/19 06:15 Polychromasia SLIGHT 06/20/19 06:15 Hypochromasia SLIGHT 06/20/19 06:15 Anisocytosis 1+ 06/20/19 06:15 Microcytosis SLIGHT 06/20/19 06:15 Target Cells 1+ 06/20/19 06:15 PT 15.2 SEC (11.4-15.4) 06/19/19 15:10 INR 1.19 06/19/19 15:10 APTT 35.6 SEC (23.5-35.8) 06/19/19 15:10 Fibrinogen 896 mg/dL (209-497) H 06/19/19 15:10 D-Dimer 3.95 ug/mL (0.00-0.50) H 06/12/19 16:34 Carbonic Acid 1.26 mmol/L (1.05-1.35) 06/17/19 05:11 HCO3/H2CO3 Ratio 21:1 06/17/19 05:11 ABG pH 7.42 (7.35-7.45) 06/17/19 05:11 ABG pCO2 41.9 mmHg (35-45) 06/17/19 05:11 ABG pO2 88.2 mmHg (80-100) 06/17/19 05:11 ABG HCO3 26.8 mmol/L (20-24) H 06/17/19 05:11 ABG Total CO2 28.1 mmol/L (23-27) H 06/17/19 05:11 ABG O2 Saturation 96.9 % (94-98) 06/17/19 05:11 ABG Base Excess 2.2 mmol/L 06/17/19 05:11 VBG pH 7.45 (7.30-7.42) H 06/12/19 16:36 VBG pCO2 32.4 mmHg (35-63) L 06/12/19 16:36 VBG HCO3 21.8 mmol/L (20-32) 06/12/19 16:36 VBG Base Excess -1.4 mmol/L 06/12/19 16:36 FiO2 30% 06/17/19 05:11 Sodium 135.6 mmol/L (137-145) L 06/22/19 06:23 Potassium 4.6 mmol/L (3.6-5.0) 06/22/19 06:23 Chloride 97 mmol/L (98-107) L 06/22/19 06:23 Carbon Dioxide 26 mmol/L (22-30) 06/22/19 06:23 Anion Gap 13 (5-19) 06/22/19 06:23 BUN 12 mg/dL (7-20) 06/22/19 06:23 Creatinine 0.55 mg/dL (0.52-1.25) 06/22/19 06:23 Est GFR ( Amer) > 60 (>60) 06/22/19 06:23 Est GFR (MDRD) Non-Af > 60 (>60) 06/22/19 06:23 Glucose 128 mg/dL (75-110) H 06/22/19 06:23 POC Glucose 168 mg/dL (70-110) H 06/19/19 17:59 Lactic Acid 2.1 mmol/L (0.7-2.1) 06/13/19 16:11 Lactic Acid (Sepsis) 2.6 mmol/L (0.7-2.1) H 06/13/19 05:20 Calcium 9.5 mg/dL (8.4-10.2) 06/22/19 06:23 Phosphorus 4.9 mg/dL (2.5-4.5) H 06/20/19 06:15 Magnesium 1.6 mg/dL (1.6-2.3) 06/20/19 06:15 Total Bilirubin 1.0 mg/dL (0.2-1.3) 06/14/19 05:41 Direct Bilirubin 0.5 mg/dL (0.0-0.4) H 06/14/19 05:41 Neonat Total Bilirubin Not Reportable 06/14/19 05:41 Neonat Direct Bilirubin Not Reportable 06/14/19 05:41 Neonat Indirect Bili Not Reportable 06/14/19 05:41 AST 60 U/L (17-59) H 06/14/19 05:41 ALT 40 U/L (<50) 06/14/19 05:41 Alkaline Phosphatase 35 U/L (38-126) L 06/14/19 05:41 Ammonia < 8.7 umol/L (9-33) L 06/13/19 09:47 Creatine Kinase 256 U/L (55-170) H 06/12/19 16:36 CK-MB (CK-2) 3.16 ng/mL (<4.55) 06/12/19 16:36 Troponin I < 0.012 ng/mL 06/12/19 16:36 Total Protein 5.8 g/dL (6.3-8.2) L 06/14/19 05:41 Albumin 3.0 g/dL (3.5-5.0) L 06/14/19 05:41 Urine Color YELLOW 06/22/19 02:22 Urine Appearance CLEAR 06/22/19 02:22 Urine pH 8.0 (5.0-9.0) 06/22/19 02:22 Ur Specific [place] 1.012 06/22/19 02:22 Urine Protein NEGATIVE mg/dL (NEGATIVE) 06/22/19 02:22 Urine Glucose (UA) NEGATIVE mg/dL (NEGATIVE) 06/22/19 02:22 Urine Ketones NEGATIVE mg/dL (NEGATIVE) 06/22/19 02:22 Urine Blood NEGATIVE (NEGATIVE) 06/22/19 02:22 Urine Nitrite NEGATIVE (NEGATIVE) 06/22/19 02:22 Urine Bilirubin NEGATIVE (NEGATIVE) 06/22/19 02:22 Urine Urobilinogen NEGATIVE mg/dL (<2.0) 06/22/19 02:22 Ur Leukocyte Esterase NEGATIVE (NEGATIVE) 06/22/19 02:22 Urine WBC (Auto) 0 /HPF 06/22/19 02:22 Urine RBC (Auto) 0 /HPF 06/20/19 01:15 U Hyaline Cast (Auto) 75 /LPF 06/12/19 16:36 Urine Bacteria (Auto) TRACE /HPF 06/12/19 16:36 Urine WBC Clumps FEW /HPF 06/12/19 16:36 Squamous Epi Cells Auto <1 /HPF 06/22/19 02:22 U Non-Squamous Epis Auto 1 /HPF 06/12/19 16:36 Urine Mucus (Auto) RARE /LPF 06/22/19 02:22 Urine Ascorbic Acid 20 (NEGATIVE) H 06/22/19 02:22 Hepatitis A IgM Ab Negative (Negative) 06/13/19 05:20 Hep Bs Antigen Negative (Negative) 06/13/19 05:20 Hep B Core IgM Ab Negative (Negative) 06/13/19 05:20 Hepatitis C Antibody <0.1 s/co ratio (0.0-0.9) 06/13/19 05:20 Influenza A (Rapid) NEGATIVE (NEGATIVE) 06/12/19 21:30 Influenza B (Rapid) NEGATIVE (NEGATIVE) 06/12/19 21:30 Slides for Path Review Cancelled 06/16/19 07:08 06/12/19 16:36 CK-MB (CK-2) 3.16 Troponin I < 0.012 Impressions: Lung Scan-VQ NM 06/12/19 00:00 IMPRESSION: Large matching defect in the right upper lobe consistent with abnormal chest x-ray which demonstrated large consolidation. Low probability of pulmonary embolism. Chest X-Ray 06/12/19 16:12 IMPRESSION: DENSE INFILTRATE IN THE RIGHT LUNG CONSISTENT WITH PNEUMONIA. Chest X-Ray 06/14/19 00:00 IMPRESSION: Endotracheal tube tip pointing toward the right mainstem bronchus Increasing diffuse bilateral airspace disease worrisome for pulmonary edema superimposed on right mid lung aspiration pneumonia. Chest X-Ray 06/14/19 00:00 IMPRESSION: Persistent dense consolidation in the right upper lobe and superior segment right lower lobe likely aspiration pneumonia. No pulmonary edema, pleural effusion or pneumothorax Endotracheal tube, nasogastric tube in good positioning Chest X-Ray 06/17/19 06:00 IMPRESSION: PERSISTENT INFILTRATE IN THE RIGHT LUNG. SLIGHT IMPROVEMENT. Plan Time Spent: Greater than 30 Minutes Stroke Is this a Stroke Patient?: No Acute Heart Failure - Is this a Heart Failure Patient?: No
== END 2019-06-22 14:23 | disposition home or self-care (01) | DRG 871 ==
LOC: ER 16:09 → EH 18:28 → 5 23:05 → ICU 06-14 06:39 → 4S 06-20 02:00
PROVIDERS: ADMIT Internal Medicine Critical Care Medicine; ATTEND Internal Medicine Critical Care Medicine
PROC: 0BH17EZ Insertion of Endotracheal Airway into Trachea, Via Natural or Artificial Opening (ICD-10-PCS; principal; 2019-06-14)
PROC: 5A1945Z Respiratory Ventilation, 24-96 Consecutive Hours (ICD-10-PCS; 2019-06-14)
PROC: 3E0234Z Introduction of Serum, Toxoid and Vaccine into Muscle, Percutaneous Approach (ICD-10-PCS; 2019-06-22)
DX: A41.9 Sepsis, unspecified organism (principal); J13 Pneumonia due to Streptococcus pneumoniae; J96.00 Acute respiratory failure, unspecified whether with hypoxia or hypercapnia; J69.0 Pneumonitis due to inhalation of food and vomit; G93.41 Metabolic encephalopathy; N17.9 Acute kidney failure, unspecified; E87.1 Hypo-osmolality and hyponatremia; F10.231 Alcohol dependence with withdrawal delirium; E83.42 Hypomagnesemia; I10 Essential (primary) hypertension; J45.909 Unspecified asthma, uncomplicated; R00.0 Tachycardia, unspecified; E86.0 Dehydration; F17.210 Nicotine dependence, cigarettes, uncomplicated; Y90.9 Presence of alcohol in blood, level not specified; Z71.6 Tobacco abuse counseling; Z23 Encounter for immunization
CPT/HCPCS: 31500; 36415; 36600; 71045; 78582; 80048; 80053; 80074; 81001; 82140; 82550; 82553; 82803; 82962; 83605; 83735; 84100; 84132; 84484; 85025; 85027; 85379; 85384; 85610; 85730; 87040; 87070; 87077; 87186; 87205; 87804; 90686; 93005; 93010; 94002; 94003; 94640; 94799; 96361; 96374; 96375; 99285; 99291; 99406; A9540; A9567; J0456; J0696; J1650; J2060; J2250; J2704; J2930; J3230; J3360; J3411; J3475; J3480; J3490; J7030; J7050; J7060; J7120; J7620; Q9969